=== PATIENT | female | born 1960 | race Caucasian/White ===

== ENCOUNTER → 2016-05-20 | Outpatient (CLI) | payer OTHER ==
[~2016-05-20] MED LIST: ASPI81CH2 PO; ATOR-24 PO; CHOL100010 PO; DOXY100C2 PO; DOXY1CAP PO; INSDGI SC; INSDGI SQ; KPP/1000 PO; KPP250 PO; LEVO125T72 PO; LPR25 PO; METO50TA16 PO; NVLG SQ; NVLGI SC; SYN125 PO; TOPI100T20 PO; TOPI200T6 PO
[2016-05-24 01:40] LABS: TOPIRAMATE (TOPAMAX)**30965 16.5 mcg/mL
== END | disposition home or self-care (01) ==
LOC: C.LAB1850 13:50
PROVIDERS: ATTEND Psychiatry & Neurology Neurology
DX: G40.909 Epilepsy, unspecified, not intractable, without status epilepticus (principal)

== ENCOUNTER 2016-07-20 14:49 | Emergency (ER) | payer OTHER ==
[~2016-07-20] VITALS: Ht 170.2 cm; Wt 55.3 kg
[~2016-07-20 14:49] MED LIST changes: -ASPI81CH2 PO; -ATOR-24 PO; -DOXY100C2 PO; -DOXY1CAP PO; -INSDGI SQ; -KPP/1000 PO; -KPP250 PO; -LEVO125T72 PO; -LPR25 PO; -METO50TA16 PO; -NVLG SQ; -SYN125 PO; -TOPI100T20 PO; -TOPI200T6 PO
[2016-07-20 14:59] VITALS: TEMP 36.7; Ht 170.2 cm; Wt 55.3 kg
[2016-07-20] MEDS ORDERED: SODIUM CHLORIDE 0.9% 1000ML 1,000 ML IV STA ×2 (15:09→16:43)
--- NOTE | 2016-07-20 15:17 | EMERGENCY ROOM VISIT NOTE ---
History Report prepared by Andresibjhony: Hermelinda Monteiro Under the Supervision of: Dr. Tio Carbajal D.O. First contact with patient: 15:05 Chief Complaint: HYPERGLYCEMIA Stated Complaint: HIGH BLOOD SUGAR READINGS Nursing Triage Summary: type I diabetic, BSGs ranging over 500 at home since last evening, taking insulin with no improvement. Denies any current illness. History of Present Illness The patient is a 56 year old female who presents to the Emergency Room with complaints of persistent hyperglycemia that started "a couple of days ago". She is accompanied by 2 family members. The patient is a type 1 diabetic and reports her BSG's have been over 500 since last night. She has tried taking Insulin with no improvement, including 2 extra units of Insulin at 1200 today. She denies any recent fevers, cough or cold symptoms, chest pain, shortness of breath, nausea, vomiting, diarrhea or increased swelling in her legs. The patient also has a history of epilepsy but states her seizures have been under control recently. Her family admits she fell a few days ago, tripping on some stairs, and she did briefly lose consciousness during the fall. The patient also has a history of previous AR's and DKA. Her PCP is Dr. Perez with [facility] and the last time she saw him was approximately 2 to 3 weeks ago. Source of History: patient, family Onset: past couple of days Position: other (global) Timing: other (persistent) Modifying Factors (Relieving): other (Insulin) Associated Symptoms: No fevers, No cough (cough or cold symptoms), No chest pain, No SOB, No nausea, No vomiting, No diarrhea Review of Systems See HPI for pertinent positives & negatives. A total of 10 systems reviewed and were otherwise negative. Past Medical & Surgical Medical Problems: (1) Diabetes mellitus (2) DKA (diabetic ketoacidoses) (3) Epilepsy (4) History of seizures (5) AR (myocardial infarction) (6) Rosacea Family History Diabetes mellitus Heart disease Hypertension Kidney disease Kidney stones Social History Smoking Status: Never Smoker Alcohol Use: none Drug Use: none Marital Status: single Housing Status: lives with family Occupation Status: unemployed Current/Historical Medications Scheduled Aspirin (Aspirin), 1 TAB PO DAILY Atorvastatin (Lipitor), 20 MG PO DAILY Doxycycline (Monohydrate) (Doxycycline), Unknown Dose PO HS Insulin Aspart (Novolog), SQ AC Insulin Glargine (Lantus), 80 MG SQ DAILY Levetiracetam (Keppra), 1,000 MG PO BID Levothyroxine Sodium (Synthroid), 125 MCG PO DAILY Metoprolol Tartrate (Lopressor) (Lopressor), 25 MG PO Q12 Topiramate (Topamax), 300 MG PO QPM Topiramate (Topamax), 100 MG PO QAM Allergies Coded Allergies: No Known Allergies (Verified , NONE, 03/02/14) Physical Exam Vital Signs Date Time Temp Pulse Resp B/P (MAP) Pulse Ox O2 Delivery O2 Flow Rate FiO2 07/20/16 20:07 53 20 145/75 99 Room Air 07/20/16 18:51 56 20 148/73 100 Room Air 07/20/16 17:02 142/68 07/20/16 17:01 56 99 07/20/16 16:54 59 19 99 07/20/16 16:49 58 19 99 07/20/16 16:45 59 07/20/16 16:37 146/73 07/20/16 14:59 36.7 69 18 133/73 97 Room Air Physical Exam GENERAL: Patient is awake, alert, in no acute distress, patient is resting comfortably and showing no signs of anxiety EYES: The conjunctivae are clear. The pupils are round and reactive. EARS, NOSE, MOUTH AND THROAT: The nose is without any evidence of any deformity. Mucous membranes are moist tongue is midline NECK: The neck is nontender and supple. RESPIRATORY: Normal respiratory effort is noted there is no evidence of wheezing rhonchi or rales CARDIOVASCULAR: Regular rate and rhythm noted there no murmurs rubs or gallops normal S1 normal S2 GASTROINTESTINAL: The abdomen is soft. Bowel sounds are present in all quadrants. Abdomen is nontender MUSCULOSKELETAL/EXTREMITIES: There is no evidence of gross deformity full range of motion is noted in the hips and shoulders SKIN: Trace pedal edema bilaterally. There is no obvious evidence of any rash. There are no petechiae, pallor or cyanosis noted. NEUROLOGIC: Patient is awake alert and oriented x3, ambulates without difficulty. Medical Decision & Procedures ER Provider Diagnostic Interpretation: X-ray results as stated below per interpretation by me and the radiologist. CHEST ONE VIEW PORTABLE CLINICAL HISTORY: Abdominal pain. COMPARISON STUDY: Chest radiograph March 11, 2015. FINDINGS: There are median sternotomy wires and clips from bypass grafting. Cardiac size is normal. There is no evidence of pulmonary edema. No consolidation is identified. Sclerotic foci within the anterior left fifth and sixth ribs are unchanged and likely reflect bone islands. There is no pneumothorax or pleural effusion. IMPRESSION: No acute cardiopulmonary findings. No change since prior exam. Electronically signed by: Keagan Sosa M.D. 07/20/2016 3:37 PM Laboratory Results 07/20/16 15:50 Red Blood Count 4.14, Mean Corpuscular Volume 80.7, Mean Corpuscular Hemoglobin 27.3, Mean Corpuscular Hemoglobin Concent 33.8, Mean Platelet Volume 10.4, Neutrophils (%) (Auto) 49.8, Lymphocytes (%) (Auto) 39.1, Monocytes (%) (Auto) 7.3, Eosinophils (%) (Auto) 3.1, Basophils (%) (Auto) 0.7, Neutrophils # (Auto) 2.74, Lymphocytes # (Auto) 2.15, Monocytes # (Auto) 0.40, Eosinophils # (Auto) 0.17, Basophils # (Auto) 0.04 07/20/16 15:50 Test 07/20/16 15:20 07/20/16 15:50 07/20/16 16:08 07/20/16 18:10 Urine Color YELLOW Urine Appearance CLEAR (CLEAR) Urine pH 5.0 (4.5-7.5) Urine Specific [place] 1.021 (1.000-1.030) Urine Protein NEG (NEG) Urine Glucose (UA) 3+ (NEG) Urine Ketones NEG (NEG) Urine Occult Blood NEG (NEG) Urine Nitrite NEG (NEG) Urine Bilirubin NEG (NEG) Urine Urobilinogen NEG (NEG) Urine Leukocyte Esterase NEG (NEG) White Blood Count 5.50 K/uL (4.8-10.8) Red Blood Count 4.14 M/uL (4.2-5.4) Hemoglobin 11.3 g/dL (12.0-16.0) Hematocrit 33.4 % (37-47) Mean Corpuscular Volume 80.7 fL (80-100) Mean Corpuscular Hemoglobin 27.3 pg (25-34) Mean Corpuscular Hemoglobin Concent 33.8 g/dl (32-36) Platelet Count 236 K/uL (130-400) Mean Platelet Volume 10.4 fL (7.4-10.4) Neutrophils (%) (Auto) 49.8 % Lymphocytes (%) (Auto) 39.1 % Monocytes (%) (Auto) 7.3 % Eosinophils (%) (Auto) 3.1 % Basophils (%) (Auto) 0.7 % Neutrophils # (Auto) 2.74 K/uL (1.4-6.5) Lymphocytes # (Auto) 2.15 K/uL (1.2-3.4) Monocytes # (Auto) 0.40 K/uL (0.11-0.59) Eosinophils # (Auto) 0.17 K/uL (0-0.5) Basophils # (Auto) 0.04 K/uL (0-0.2) RDW Standard Deviation 35.9 fL (36.4-46.3) RDW Coefficient of Variation 12.2 % (11.5-14.5) Immature Granulocyte % (Auto) 0.0 % Immature Granulocyte # (Auto) 0.00 K/uL (0.00-0.02) Prothrombin Time 11.0 SECONDS (9.0-12.0) Prothromb Time International Ratio 1.0 (0.9-1.1) Activated Partial Thromboplast Time 25.1 SECONDS (21.0-31.0) Partial Thromboplastin Ratio 1.0 Anion Gap 11.0 mmol/L (3-11) Est Creatinine Clear Calc Drug Dose 61.0 ml/min Estimated GFR () 82.3 Estimated GFR (Non- 71.0 BUN/Creatinine Ratio 26.1 (10-20) Calcium Level 8.3 mg/dl (8.5-10.1) Total Bilirubin 0.3 mg/dl (0.2-1) Direct Bilirubin 0.1 mg/dl (0-0.2) Aspartate Amino Transf (AST/SGOT) 44 U/L (15-37) Alanine Aminotransferase (ALT/SGPT) 113 U/L (12-78) Alkaline Phosphatase 122 U/L (45-117) Total Creatine Kinase 125 U/L (26-192) Creatine Kinase MB 2.1 ng/ml (0.5-3.6) Creatine Kinase MB Ratio 1.7 (0-3.0) Total Protein 7.2 gm/dl (6.4-8.2) Albumin 3.9 gm/dl (3.4-5.0) Lipase 161 U/L (73-393) Beta-Hydroxybutyric Acid 2.77 mg/dL (0.2-2.81) Venous Blood pH 7.40 (7.36-7.41) Venous Blood Partial Pressure CO2 33 mmHg (38.0-50.0) Venous Blood Partial Pressure O2 47 mmHg Venous Blood HCO3 20 mmol/L Venous Blood Oxygen Saturation 80.9 % Venous Blood Base Excess -4.3 mmol/L Troponin I 0.037 ng/ml (0-0.045) Test 07/20/16 18:50 Bedside Glucose 128 mg/dl (70-90) Laboratory results per my review. Medications Administered Medications (Trade) Dose Ordered Sig/Cornell Route Start Time Stop Time Status Last Admin Dose Admin Sodium Chloride 1,000 ml @ 999 mls/hr Q1H1M STAT IV 07/20/16 15:09 07/20/16 16:09 DC 07/20/16 16:00 999 MLS/HR Sodium Chloride 1,000 ml @ 999 mls/hr Q1H1M STAT IV 07/20/16 16:43 07/20/16 17:43 DC 07/20/16 16:55 999 MLS/HR Insulin Human Regular (novoLIN-R U-100 PER UNIT) 5 units NOW STAT IV 07/20/16 17:05 07/20/16 17:06 DC 07/20/16 17:21 5 UNITS ECG Indication: weakness, other (hyperglycemia) Rate (beats per minute): 58 Rhythm: sinus bradycardia Findings: no ectopy, other (No acute ST segment abnormality, anterior T-wave abnormality) Change: no significant change (No significant change when compared to March 13, 2015) Change: 2nd EKG performed on July 20, 2016: Normal sinus rhythm, rate of 60, no ectopy, increased ST abnormalities from previous EKG. ED Course 1508: The patient was evaluated in room A11B. A complete history and physical examination were performed. 1509: NSS 1000 ml @ 999 mls/hr IV. 1643: NSS 1000 ml @ 999 mls/hr IV. 1705: Novolin-R U-100 per unit, 5 units IV. 1900: I reevaluated the patient. She is feeling well and her BSG is more stable currently. 2000: I reevaluated the patient. She is feeling well and resting comfortably. I discussed her results and discharge instructions and she and her family verbalized complete understanding and agreement. Medical Decision Medication Reconciliation: I attest that I have personally reviewed the patient' s current medications list. Patient was found to have a slightly elevated blood pressure due to circumstances. I do not believe that the patient requires hypertension monitoring. Prior records/ancillary studies reviewed and summarized above. Nursing notes reviewed. Additional history obtained from the patients family. Differential diagnosis: Etiologies such as metabolic, infection, hypo/hyperglycemia, electrolyte abnormalities, cardiac sources, intracerebral event, toxicologic, neurologic, as well as others were entertained. The patient is a 56-year-old female who presented to the emergency department for an evaluation of elevated blood sugar. The patient had no specific complaints and has had problems in the past similar to this. She states that she 's been compliant with her medications and she presents to emergency department with family members who state that she has been compliant with medications. She denies having any nausea vomiting chest pain or abdominal pain. The patient was treated with IV fluids and IV insulin in the emergency department. She was not found have significant anion gap or acidosis. She was found have a mild elevation in her liver function studies but has no abdominal tenderness on multiple re-evaluations. She also was found have a troponin which was detectable but not elevated above the positive threshold. This was rechecked on a delayed EKG as well as troponin. I discussed the patient's laboratory and radiographic studies with her and her family members. I offered to have the patient evaluated by the hospitalist but she stated that she felt better and was able to follow-up as an outpatient with her primary care physician. She was encouraged to rest and avoid any strenuous activity. She was encouraged to drink plenty clear liquids and continue all medications as prescribed. She was also encouraged return to the emergency department immediately if symptoms change worsen or if the need arises. Impression Primary Impression: Hyperglycemia Scribe Attestation The scribe's documentation has been prepared under my direction and personally reviewed by me in its entirety. I confirm that the note above accurately reflects all work, treatment, procedures, and medical decision making performed by me. Departure Information Dispostion Home / Self-Care Referrals Maximilian Perez D.O. (PCP) Patient Instructions Hyperglycemia, My [facility] Additional Instructions Continue all medications as prescribed. Drink plenty clear liquids. I would recommend a reevaluation by your family doctor. I would also recommend a recheck of your blood pressure as well as your liver function studies. Return to the emergency department immediately if symptoms change worsen or the need arises.
--- NOTE | 2016-07-20 15:38 | DIAGNOSTIC IMAGING REPORT ---
CHEST ONE VIEW PORTABLE CLINICAL HISTORY: Abdominal pain. COMPARISON STUDY: Chest radiograph March 11, 2015. FINDINGS: There are median sternotomy wires and clips from bypass grafting. Cardiac size is normal. There is no evidence of pulmonary edema. No consolidation is identified. Sclerotic foci within the anterior left fifth and sixth ribs are unchanged and likely reflect bone islands. There is no pneumothorax or pleural effusion. IMPRESSION: No acute cardiopulmonary findings. No change since prior exam. Electronically signed by: Keagan Sosa M.D. 07/20/2016 3:37 PM Dictated Date/Time: 07/20/2016 3:33 PM
[2016-07-20] MEDS ORDERED: TOPI100T20 PO (15:39)
[2016-07-20] MEDS ORDERED: NVLG SQ (15:41)
[2016-07-20 15:45] LABS: URINE APPEARANCE CLEAR (CLEAR); URINE BILIRUBIN NEG (NEG); URINE COLOR YELLOW; URINE NITRITE NEG (NEG); URINE SPECIFIC GRAVITY 1.021 (1.000-1.030); UROBILINOGEN NEG (NEG)
[2016-07-20] MEDS ORDERED: INSDGI SQ (15:47)
[2016-07-20] MEDS ORDERED: DOXY1CAP PO (15:47)
[2016-07-20] MEDS ORDERED: ATOR-24 PO (15:47)
[2016-07-20] MEDS ORDERED: ASPI81CH2 PO (15:47)
[2016-07-20] MEDS ORDERED: METO50TA16 PO (15:47)
[2016-07-20 15:55] LABS: MANUAL MICROSCOPIC REQUIRED? NO; REVIEW REQ? NO
[2016-07-20 16:15] LABS: VEN BLD GAS O2 SATURATION 80.9 %; VEN BLOOD GAS BASE EXCESS -4.3 mmol/L
[2016-07-20 16:23] LABS: BASO % 0.7 %; BASO ABS # 0.04 K/uL (0-0.2); COMPLETE YES; EOS % 3.1 %; HEMATOCRIT 33.4 % (37-47); LYMPH % 39.1 %; LYMPH ABS # 2.15 K/uL (1.2-3.4); MEAN CELL VOLUME 80.7 fL (80-100); MEAN CORPUSCULAR HEMOGLOBIN 27.3 pg (25-34); MEAN CORPUSCULAR HGB CONC 33.8 g/dl (32-36); MEAN PLATELET VOLUME 10.4 fL (7.4-10.4); MONO % 7.3 %; NEUT % 49.8 %; PLATELET COUNT 236 K/uL (130-400); RED BLOOD COUNT 4.14 M/uL (4.2-5.4)
[2016-07-20 16:41] LABS: BUN/CREATININE RATIO 26.1 (10-20); CALCIUM 8.3 mg/dl (8.5-10.1); CREATININE 0.91 mg/dl (0.60-1.20); POTASSIUM 3.7 mmol/L (3.5-5.1)
[2016-07-20 16:46] LABS: BETA-HYDROXYBUTYRATE 2.77 mg/dL (0.2-2.81); CKMB/CK RATIO 1.7 (0-3.0)
[2016-07-20] MEDS ORDERED: NovoLIN-R INSULIN PER UNIT CHARGE IV STA (17:05)
[2016-07-20] MEDS ORDERED: LEVO125T72 PO (18:20)
[2016-07-20] MEDS ORDERED: KPP/1000 PO (18:33)
[2016-07-20] MEDS ORDERED: TOPI200T6 PO (18:41)
[2016-07-20 20:07] VITALS: BP 145/75; PULSE 53; O2SAT 99
[2016-12-12] MEDS ORDERED: ATOR-24 PO (10:11)
== END 2016-07-20 20:26 | disposition home or self-care (01) ==
LOC: C.EDB 14:50 → C.EDA 20:26
DX: E10.65 Type 1 diabetes mellitus with hyperglycemia (principal); G40.909 Epilepsy, unspecified, not intractable, without status epilepticus; I25.2 Old myocardial infarction; Z79.82 Long term (current) use of aspirin; Z79.4 Long term (current) use of insulin; Z79.899 Other long term (current) drug therapy; Z83.3 Family history of diabetes mellitus; Z82.49 Family history of ischemic heart disease and other diseases of the circulatory system; Z84.1 Family history of disorders of kidney and ureter

== ENCOUNTER 2016-09-09 10:58 | Inpatient (IN) | payer OTHER ==
[~2016-09-09] VITALS: Ht 160 cm; Wt 56.3 kg
[~2016-09-09 10:58] MED LIST changes: +ASPI81CH2 PO; +ATOR-24 PO; -CHOL100010 PO; +DOXY1CAP PO; -INSDGI SC; +INSDGI SQ; +KPP/1000 PO; +LEVO125T72 PO; +METO50TA16 PO; +NVLG SQ; -NVLGI SC; +TOPI100T20 PO; +TOPI200T6 PO
[2016-09-09] MEDS ORDERED: DOXY100C2 PO (11:33)
[2016-09-09 11:42] LABS: COMPLETE YES; EOS % 1.4 %; HEMATOCRIT 36.8 % (37-47); IG% 0.6 %; LYMPH % 23.8 %; LYMPH ABS # 1.19 K/uL (1.2-3.4); MEAN CELL VOLUME 83.1 fL (80-100); MEAN CORPUSCULAR HEMOGLOBIN 26.9 pg (25-34); MEAN CORPUSCULAR HGB CONC 32.3 g/dl (32-36); MEAN PLATELET VOLUME 10.1 fL (7.4-10.4); NEUT % 73.2 %; PLATELET COUNT 267 K/uL (130-400); RED BLOOD COUNT 4.43 M/uL (4.2-5.4)
--- NOTE | 2016-09-09 11:54 | DIAGNOSTIC IMAGING REPORT ---
CHEST ONE VIEW PORTABLE CLINICAL HISTORY: Acute change in mental status COMPARISON STUDY: 07/20/2016 FINDINGS: There are postsurgical changes of a midline sternotomy. The heart is normal in size. There is no failure. There is no focal pulmonary consolidation.[ There is a stable left-sided sclerotic rib lesion. IMPRESSION: No active disease in the chest. Electronically signed by: Armando Love M.D. 09/09/2016 11:52 AM Dictated Date/Time: 09/09/2016 11:49 AM
[2016-09-09] MEDS ORDERED: SODIUM CHLORIDE 0.9% 1000ML 1,000 ML IV STA (12:18)
[2016-09-09] MEDS ORDERED: SODIUM CHLORIDE 0.9% 1000ML 1,000 ML IV ONE (12:18)
[2016-09-09] MEDS ORDERED: NovoLIN-R INSULIN PER UNIT CHARGE IV STA (12:18)
--- NOTE | 2016-09-09 12:25 | EMERGENCY ROOM VISIT NOTE ---
History Report prepared by Ben: Rosas Aviles Under the Supervision of: Dr. Kodak Chandra M.D. First contact with patient: 12:10 Chief Complaint: HYPERGLYCEMIA Stated Complaint: HYPERGLYCEMIA/LETHARGIC Nursing Triage Summary: Pt arrives to ER via ALS. Found unresponsive in bathroom at home. Pt BSG "HI" on EMS meter. Pts mother reports pt also has hx of seizures, most recent 2 days ago. Upon arrival to ER pt Awake, lethargic, oriented to place and person. Pt unable to report amount of insulin taken this AM. Pts mother reports pt has recently had high blood sugars with no similar issues. History of Present Illness The patient is a 56 year old female who presents to the Emergency Room with complaints of a possible resolved seizure occurring around 0930 from possible hyperglycemia. The patient's neighbor states that she found the patient on the commode unresponsive with her head against the wall/ The patient states that she does not think that she hit her head. The patient states that she had a large bowel movement when she had the episode. The patient denies any cough, fever, chest pain, abdominal pain, leg pain, numbness, or weakness, or shortness of breath. The patient states that she takes insulin for her diabetes , and she states that she did not miss taking any and did not miss a meal. Additionally, the patient takes Keppra and Topamax for her seizures and she hasn 't missed any. The patient has a history of DKA. Source of History: patient, family, other (neighbor) Onset: 0930 Position: other (global) Quality: other (seizure) Timing: resolved Associated Symptoms: No fevers, No cough, No chest pain, No SOB, No abdominal pain, No weakness, No numbness Review of Systems See HPI for pertinent positives & negatives. A total of 10 systems reviewed and were otherwise negative. Past Medical & Surgical Medical Problems: (1) Anemia (2) CAD (coronary artery disease) (3) DKA (diabetic ketoacidoses) (4) DM type 1 (diabetes mellitus, type 1) (5) Dyslipidemia (6) Epilepsy (7) Hypothyroidism (8) CT (myocardial infarction) (9) Rosacea (10) Unresponsive episode Surgical Problems: (1) Hx of CABG Old medical records were reviewed. Nurse's notes were reviewed and I agree with. Family History Diabetes mellitus Heart disease Hypertension Kidney disease Kidney stones Social History Smoking Status: Never Smoker Alcohol Use: none Drug Use: none Marital Status: single Housing Status: lives with family Occupation Status: unemployed Current/Historical Medications Scheduled Aspirin (Aspirin), 81 MG PO DAILY Doxycycline Hyclate (Vibramycin), 100 MG PO DAILY Insulin Aspart (Novolog), SQ AC Insulin Glargine (Lantus), 26 UNITS SQ QAM Levetiracetam (Keppra), 1,000 MG PO BID Levetiractam (Keppra), 250 MG PO BID Levothyroxine Sodium (Synthroid), 125 MCG PO UD Levothyroxine Sodium (Synthroid), 187.5 MCG PO WK Metoprolol Tartrate (Lopressor), 12.5 MG PO BID Topiramate (Topamax), 300 MG PO QPM Topiramate (Topamax), 100 MG PO QAM Allergies Coded Allergies: No Known Allergies (Verified , NONE, 09/09/16) Physical Exam Vital Signs Date Time Temp Pulse Resp B/P (MAP) Pulse Ox O2 Delivery O2 Flow Rate FiO2 09/09/16 13:03 100 Room Air 09/09/16 12:35 35.4 59 16 108/52 100 Room Air 09/09/16 11:20 95 Room Air 09/09/16 11:20 95 Room Air 09/09/16 11:20 72 18 107/57 94 Room Air 09/09/16 11:09 74 Physical Exam General: Pale, chronically ill-appearing older female that denies any complaints at the present. HEENT: Normal cephalic atraumatic. Pupils are equal round and reactive to light. Extraocular movements are intact. Oropharynx is pink with moist mucous membranes. No swelling of the mouth lips or tongue. Neck: Supple with a midline trachea. No meningeal signs or stiffness, no JVD or bruits. No Stridor. Chest: Clear to auscultation bilaterally. No wheezes or rhonchi. No increased work of breathing. Heart: regular rate and rhythm. Abdomen: Soft nontender, nondistended without rebound guarding or rigidity. Extremities: No cyanosis clubbing or edema. No calf tenderness or assymetry Spine/Back. Non tender to palpation. No CVA tenderness Skin: Good turgor without rashes. Neurologic exam: Cranial nerves two through 12 are intact. Motor and sensation are intact and symmetrical throughout. Medical Decision & Procedures ER Provider Diagnostic Interpretation: Radiology results as stated below per my review and radiologist interpretation: CHEST ONE VIEW PORTABLE CLINICAL HISTORY: Acute change in mental status COMPARISON STUDY: 07/20/2016 FINDINGS: There are postsurgical changes of a midline sternotomy. The heart is normal in size. There is no failure. There is no focal pulmonary consolidation.[ There is a stable left-sided sclerotic rib lesion. IMPRESSION: No active disease in the chest. Electronically signed by: Armando Love M.D. 09/09/2016 11:52 AM Dictated Date/Time: 09/09/2016 11:[address] HEAD WITHOUT CONTRAST (CT) CLINICAL HISTORY: Head trauma. Dizziness. 11 2. COMPARISON STUDY: No previous studies for comparison. TECHNIQUE: Axial CT of the brain is performed from the vertex to the skull base. IV contrast was not administered for this examination. A dose lowering technique was utilized adhering to the principles of ALARA. CT DOSE: 638.56 mGycm FINDINGS: No intra or extra-axial mass lesions are visualized. There is no CT evidence of acute cortical infarction. There is no evidence of midline shift. There is no acute hemorrhage. No calvarial fractures are visualized. There are minimal white matter hypodensities likely on a small vessel basis. There is no evidence of pathologic ventricular dilatation. There is a left mastoid effusion. IMPRESSION: Extensive left mastoid effusion. No acute intracranial findings. Electronically signed by: Armando Love M.D. 09/09/2016 1:53 PM Dictated Date/Time: 09/09/2016 1:51 PM Laboratory Results 09/09/16 11:25 Red Blood Count 4.43, Mean Corpuscular Volume 83.1, Mean Corpuscular Hemoglobin 26.9, Mean Corpuscular Hemoglobin Concent 32.3, Mean Platelet Volume 10.1, Neutrophils (%) (Auto) 73.2, Lymphocytes (%) (Auto) 23.8, Monocytes (%) (Auto) 1.0, Eosinophils (%) (Auto) 1.4, Basophils (%) (Auto) 0.0, Neutrophils # (Auto) 3.66, Lymphocytes # (Auto) 1.19, Monocytes # (Auto) 0.05, Eosinophils # (Auto) 0.07, Basophils # (Auto) 0.00 Test 09/09/16 11:25 09/09/16 11:34 09/09/16 12:29 White Blood Count 5.00 K/uL (4.8-10.8) Red Blood Count 4.43 M/uL (4.2-5.4) Hemoglobin 11.9 g/dL (12.0-16.0) Hematocrit 36.8 % (37-47) Mean Corpuscular Volume 83.1 fL (80-100) Mean Corpuscular Hemoglobin 26.9 pg (25-34) Mean Corpuscular Hemoglobin Concent 32.3 g/dl (32-36) Platelet Count 267 K/uL (130-400) Mean Platelet Volume 10.1 fL (7.4-10.4) Neutrophils (%) (Auto) 73.2 % Lymphocytes (%) (Auto) 23.8 % Monocytes (%) (Auto) 1.0 % Eosinophils (%) (Auto) 1.4 % Basophils (%) (Auto) 0.0 % Neutrophils # (Auto) 3.66 K/uL (1.4-6.5) Lymphocytes # (Auto) 1.19 K/uL (1.2-3.4) Monocytes # (Auto) 0.05 K/uL (0.11-0.59) Eosinophils # (Auto) 0.07 K/uL (0-0.5) Basophils # (Auto) 0.00 K/uL (0-0.2) RDW Standard Deviation 37.7 fL (36.4-46.3) RDW Coefficient of Variation 12.4 % (11.5-14.5) Immature Granulocyte % (Auto) 0.6 % Immature Granulocyte # (Auto) 0.03 K/uL (0.00-0.02) Estimated Average Glucose 223 mg/dl Hemoglobin A1c 9.4 % (4.5-5.6) Total Bilirubin 0.8 mg/dl (0.2-1) Alanine Aminotransferase (ALT/SGPT) 37 U/L (12-78) Alkaline Phosphatase 99 U/L (45-117) Troponin I < 0.015 ng/ml (0-0.045) Total Protein 7.3 gm/dl (6.4-8.2) Albumin 3.8 gm/dl (3.4-5.0) Globulin 3.5 gm/dl (2.5-4.0) Albumin/Globulin Ratio 1.1 (0.9-2) Thyroid Stimulating Hormone (TSH) 3.840 uIu/ml (0.300-4.500) Bedside Lactic Acid Venous 2.67 mmol/L (0.90-1.70) Aspartate Amino Transf (AST/SGOT) 16 U/L (15-37) Ethyl Alcohol mg/dL < 3.0 mg/dl (0-3) Laboratory studies as stated above per my review. Medications Administered Medications (Trade) Dose Ordered Sig/Cornell Route Start Time Stop Time Status Last Admin Dose Admin Insulin Human Regular (novoLIN-R U-100 PER UNIT) 10 units NOW STAT IV 09/09/16 12:18 09/09/16 12:20 DC 09/09/16 12:31 10 UNITS Sodium Chloride 1,000 ml @ 999 mls/hr Q1H1M STAT IV 09/09/16 12:18 09/09/16 13:18 DC 09/09/16 12:32 999 MLS/HR Sodium Chloride 1,000 ml @ 200 mls/hr Q5H ONCE IV 09/09/16 12:18 09/09/16 14:55 DC 09/09/16 12:32 200 MLS/HR ECG Indication: other (hyperglycemia) Rate (beats per minute): 71 Rhythm: normal sinus Findings: RBBB (incomplete), no acute ischemic change, prolonged QT, other ( Non specific T wave abnormality) Comparison ECG Date: 07/20/16 Change: QT interval is slightly longer ED Course 1210: Past medical records reviewed. The patient was evaluated in room C10, and a complete history and physical examination were performed. 1218: Sodium Chloride 1000 ml @ 200 mls/hr IV, Sodium Chloride 1000 ml @ 999 mls /hr IV, Insulin Human Regular 10 units IV 1240: I reevaluated the patient, and she is feeling okay 1245: Discussed the patient's case with JOLIE Cortés. The patient will be evaluated for further management. Medical Decision Differentials include, but are not limited to; DKA, HHNC, seizure, trauma, arrhythmia, electrolyte or metabolic abnormality. This patient comes in as described above. She had an episode where she was found unresponsive on the commode she was having a large bowel movement she has a history of type 1 diabetes as well as seizures and other medical problems. It was found that her blood sugar was greater than 600. Upon my initial evaluation emergency department she says she feels well and says she is asymptomatic. She denies pain or shortness breath or recent illness. She's had no blood or melena in her stool. Blood sugar was over 600. She does have some mild acidosis and probably does have some mild DKA. She was given 10 units regular insulin as well as IV hydration, she's been normotensive here, she was slightly hypothermic. CAT scan of her head was unremarkable obtain this because I was not sure if she hit her head or not. She does have a normal neurologic exam. She has no other significant electrolyte or metabolic abnormalities. She seemed to be doing much better. It is possible she could' ve had a seizure. I do think she needs to be admitted for further treatment and evaluation. I do think she has mild DKA and she may have had a precipitating cause for this as well. I'd do think she needs a further be evaluated for cardiac disease. I did consult the [facility] hospitalist who saw her in the ER and will admit her for these measures. Medication Reconcilliation Current Medication List: was personally reviewed by me Blood Pressure Screening Patient's blood pressure: Normal blood pressure Consults Time Called: 1242 Consulting Physician: JOLIE Cortés Returned Call: [phone] Discussed the patient's case with JOLIE Cortés. The patient will be evaluated for further management. Impression Primary Impression: Hyperglycemia Additional Impression: Altered mental status Scribe Attestation The scribe's documentation has been prepared under my direction and personally reviewed by me in its entirety. I confirm that the note above accurately reflects all work, treatment, procedures, and medical decision making performed by me. Departure Information Dispostion Being Evaluated By Hospitalist Referrals Maximilian Perez D.O. (PCP) Problem Qualifiers
[2016-09-09 12:27] LABS: ALB/GLOB RATIO 1.1 (0.9-2); ALKALINE PHOSPHATASE 99 U/L (45-117); ALT/SGPT 37 U/L (12-78); BLOOD UREA NITROGEN 24 mg/dl (7-18); BUN/CREATININE RATIO 18.5 (10-20); CALCIUM 8.9 mg/dl (8.5-10.1); CARBON DIOXIDE 17 mmol/L (21-32); CHLORIDE 107 mmol/L (98-107); GLUCOSE 601 mg/dl (70-99); SODIUM 137 mmol/L (136-145)
[2016-09-09 13:03] VITALS: O2SAT 100; BMI 21.6
[2016-09-09 13:15] LABS: BETA-HYDROXYBUTYRATE 10.21 mg/dL (0.2-2.81)
[2016-09-09] MEDS ORDERED: ONDANSETRON INJ 2 MG/ML 2 ML VIAL IV PRN (13:30)
[2016-09-09] MEDS ORDERED: ACETAMINOPHEN 325 MG TAB PO PRN (13:30)
[2016-09-09] MEDS ORDERED: SODIUM CHLORIDE 0.9% 1000ML 1,000 ML IV SCH (13:42)
[2016-09-09] MEDS ORDERED: INSULIN IV INFUSION PROTOCOL STA (13:42)
[2016-09-09] MEDS ORDERED: MODERATE STRESS LEVEL ONE (13:45)
[2016-09-09] MEDS ORDERED: DKA GOAL RANGE 150-250 mg/dl 1 EA ONE (13:45)
[2016-09-09] MEDS ORDERED: PHARMACY GLYCEMIC MGMT CONSULT PRN (13:45)
--- NOTE | 2016-09-09 13:54 | DIAGNOSTIC IMAGING REPORT ---
CT HEAD WITHOUT CONTRAST (CT) CLINICAL HISTORY: Head trauma. Dizziness. 11 2. COMPARISON STUDY: No previous studies for comparison. TECHNIQUE: Axial CT of the brain is performed from the vertex to the skull base. IV contrast was not administered for this examination. A dose lowering technique was utilized adhering to the principles of ALARA. CT DOSE: 638.56 mGycm FINDINGS: No intra or extra-axial mass lesions are visualized. There is no CT evidence of acute cortical infarction. There is no evidence of midline shift. There is no acute hemorrhage. No calvarial fractures are visualized. There are minimal white matter hypodensities likely on a small vessel basis. There is no evidence of pathologic ventricular dilatation. There is a left mastoid effusion. IMPRESSION: Extensive left mastoid effusion. No acute intracranial findings. Electronically signed by: Armando Love M.D. 09/09/2016 1:53 PM Dictated Date/Time: 09/09/2016 1:51 PM
[2016-09-09] MEDS ORDERED: KPP250 PO (13:57)
[2016-09-09] MEDS ORDERED: SYN125 PO (13:57)
[2016-09-09] MEDS ORDERED: LPR25 PO (13:57)
[2016-09-09 14:12] VITALS: O2SAT 100
[2016-09-09 14:23] LABS: ESTIMATED AVERAGE GLUCOSE 223 mg/dl; HA1C FLAG Normal (Normal)
--- NOTE | 2016-09-09 14:41 | Pharmacy Progress Note ---
Glycemic Control Intl Consult Date of Service Sep 09, 2016. Scope Glycemic Pharmacist consulted by Ree Lund PA-C on 09/09/16 for glycemic control and to write orders per [facility] inpatient glycemic control protocol Objective Weight (Kilograms): 55.300 Accuchecks BSG (last 24hrs): Test 09/09/16 11:14 09/09/16 11:25 09/09/16 13:42 Bedside Glucose > 600 mg/dl (70-90) 404 mg/dl (70-90) Random Glucose 601 mg/dl (70-99) Laboratory Data (last 24hrs) Test 09/09/16 11:25 09/09/16 12:29 Anion Gap 13.0 mmol/L BUN/Creatinine Ratio 18.5 Blood Urea Nitrogen 24 mg/dl Creatinine 1.30 mg/dl Hemoglobin A1c 9.4 % Potassium Level mmol/L 4.0 mmol/L Sodium Level 137 mmol/L White Blood Count 5.00 K/uL Red Blood Count 4.43 M/uL Hemoglobin 11.9 g/dL Hematocrit 36.8 % Mean Corpuscular Volume 83.1 fL Mean Corpuscular Hemoglobin 26.9 pg Mean Corpuscular Hemoglobin Concent 32.3 g/dl Platelet Count 267 K/uL Mean Platelet Volume 10.1 fL Neutrophils (%) (Auto) 73.2 % Lymphocytes (%) (Auto) 23.8 % Monocytes (%) (Auto) 1.0 % Eosinophils (%) (Auto) 1.4 % Basophils (%) (Auto) 0.0 % Neutrophils # (Auto) 3.66 K/uL Lymphocytes # (Auto) 1.19 K/uL Monocytes # (Auto) 0.05 K/uL Eosinophils # (Auto) 0.07 K/uL Basophils # (Auto) 0.00 K/uL HbA1c Test 09/09/16 11:25 Hemoglobin A1c 9.4 % (4.5-5.6) H Recent Pertinent Medications Outpatient Anti-diabetic Regimen: * Lantus 26 units SQ daily in AM * NovoLog AC ( 6 units with BF, 5 units with Lunch & Dinner) & NovoLog correctional insulin per CF = 25 for BSG > 90 Assessment & Plan ASSESSMENT: * 56yo T1DM female admitted with mild DKA. * Pt initiated on IV insulin infusion per DKA protocol * Will transition to SQ basal bolus inpatient regimen when patient meets criteria & is tolerating PO * Criteria: Serum glucose below 200 mg/dL (DKA) or 250 to 300 mg/dL (HHS) Serum anion gap <12 meq/L Serum bicarbonate =15 meq/L Venous pH >7.30 * ADA & AACE recommend a goal blood sugar range 140-180 mg/dl for the majority of critically ill & non-critically ill patients. However, more stringent targets may be selected in individual cases. PLAN FOR INPATIENT GLYCEMIC CONTROL: * Continue IV insulin infusion per DKA protocol * Goal Range 150-250 mg/dl --> probably can lower goal range to 140-180mg/dl since DKA mild * In the critical care setting, continuous IV insulin infusion has been shown to be the best method for achieving glycemic targets. * Transition to SQ basal bolus insulin regimen 8/1 AM pending labs WNL and tolerating PO * Please note that the plan above was derived based on current level of insulin resistance and hospital stress. These recommendations are appropriate for inpatient admission only. Plan of care upon discharge will need to be reassessed to avoid potential outpatient hypo/hyperglycemia. Thank you.
[2016-09-09 14:42] VITALS: BP 135/74; PULSE 61; O2SAT 100
--- NOTE | 2016-09-09 14:54 | History and Physical ---
History & Physical Date & Time of Service: Sep 09, 2016 at 14:18 Chief Complaint: Hyperglycemia/Lethargic Primary Care Physician: Maximilian Perez D.O. History of Present Illness Source: patient, hospital records This is a 56 y/o female with PMH of DM type 2, seizure disorder, CAD s/p CABG, dyslipidemia, hypothyroidism, who presents to the ED for unresponsive episode. Patient reports being in her usual state of health this morning, however she can not recall the details of the episode. Around 9:00 am while in the bathroom patient was found unresponsive by her mother. Pt's mother states patient was locked in and she had to enter through the window. Her mother reports she was sitting on the commode unresponsive with her head against the wall. Her mother states she was unresponsive for approximately 5-15 minutes. No seizure like activity was witnessed. Patient had passed a bowel movement. 911 was called and for EMS blood sugar was elevated >600. Pt is now awake/alert and asymptomatic. She reports eating normally this morning. Has been compliant with insulin and seizure meds. Blood sugars fluctuate at home from 40's (asymptomatic) up to 400' s per pt's mother. Last seizure was years ago which presented as a short period of unresponsiveness as per her mother. Patient denies headache, dizziness, vision change, focal neurologic symptoms, fever, chills, rhinorrhea, sore throat , ear ache, cough, SOB, chest pain, palpitations, abdominal pain, N/V/D, dysuria , frequency, rash. Past Medical/Surgical History Medical Problems: (1) Anemia Status: Chronic (2) CAD (coronary artery disease) Status: Chronic (3) DM type 1 (diabetes mellitus, type 1) Status: Chronic (4) Dyslipidemia Status: Chronic (5) Epilepsy Status: Chronic (6) Hypothyroidism Status: Chronic (7) Rosacea Status: Chronic Surgical Problems: (1) Hx of CABG Status: Chronic Family History Diabetes mellitus Heart disease Hypertension Kidney disease Kidney stones Social History Smoking Status: Never Smoker Alcohol Use: none Drug Use: none Marital Status: single Housing status: lives with family (with her parents) Occupational Status: unemployed Immunizations History of Influenza Vaccine: Yes Influenza Vaccine Date: Nov 10, 2008 History of Tetanus Vaccine?: Yes History of Pneumococcal: Yes Pneumococcal Date: Jan 01, 2006 History of Hepatitis B Vaccine: No Multi-Drug Resistant Organisms History of MDRO: No Allergies Coded Allergies: No Known Allergies (Verified , NONE, 09/09/16) Home Medications Scheduled Aspirin (Aspirin), 81 MG PO DAILY Doxycycline Hyclate (Vibramycin), 100 MG PO DAILY Insulin Aspart (Novolog), SQ AC Insulin Glargine (Lantus), 26 UNITS SQ QAM Levetiracetam (Keppra), 1,000 MG PO BID Levetiractam (Keppra), 250 MG PO BID Levothyroxine Sodium (Synthroid), 125 MCG PO UD Levothyroxine Sodium (Synthroid), 187.5 MCG PO WK Metoprolol Tartrate (Lopressor), 12.5 MG PO BID Topiramate (Topamax), 300 MG PO QPM Topiramate (Topamax), 100 MG PO QAM Review of Systems Ten systems reviewed and negative except as noted in HPI. Physical Exam Vital Signs Date Time Temp Pulse Resp B/P (MAP) Pulse Ox O2 Delivery O2 Flow Rate FiO2 09/09/16 14:12 59 16 120/58 100 09/09/16 13:03 100 Room Air 09/09/16 12:35 35.4 59 16 108/52 100 Room Air 09/09/16 11:20 95 Room Air 09/09/16 11:20 95 Room Air 09/09/16 11:20 72 18 107/57 94 Room Air 09/09/16 11:09 74 General Appearance: WD/WN, no apparent distress Head: normocephalic, atraumatic Eyes: normal inspection, PERRL, EOMI, sclerae normal ENT: normal ENT inspection, hearing grossly normal, TMs normal, pharynx normal , + pertinent finding (L mastoid nontender) Neck: supple, trachea midline Respiratory/Chest: lungs clear, normal breath sounds, no respiratory distress, no accessory muscle use Cardiovascular: regular rate, rhythm, no murmur Abdomen/GI: normal bowel sounds, non tender, soft Extremities/Musculoskelatal: no calf tenderness, no pedal edema 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 nml as tested (no facial droop or dysarthria), no motor/sensory deficits, alert, normal mood/affect, oriented x 3 Skin: normal color, warm/dry Diagnostics Laboratory Results Results Past 24 Hours Test 09/09/16 11:14 09/09/16 11:25 09/09/16 11:34 09/09/16 12:29 Range/Units Bedside Glucose > 600 70-90 mg/dl White Blood Count 5.00 4.8-10.8 K/uL Red Blood Count 4.43 4.2-5.4 M/uL Hemoglobin 11.9 12.0-16.0 g/dL Hematocrit 36.8 37-47 % Mean Corpuscular Volume 83.1 80-100 fL Mean Corpuscular Hemoglobin 26.9 25-34 pg Mean Corpuscular Hemoglobin Concent 32.3 32-36 g/dl Platelet Count 267 130-400 K/uL Mean Platelet Volume 10.1 7.4-10.4 fL Neutrophils (%) (Auto) 73.2 % Lymphocytes (%) (Auto) 23.8 % Monocytes (%) (Auto) 1.0 % Eosinophils (%) (Auto) 1.4 % Basophils (%) (Auto) 0.0 % Neutrophils # (Auto) 3.66 1.4-6.5 K/uL Lymphocytes # (Auto) 1.19 1.2-3.4 K/uL Monocytes # (Auto) 0.05 0.11-0.59 K/uL Eosinophils # (Auto) 0.07 0-0.5 K/uL Basophils # (Auto) 0.00 0-0.2 K/uL RDW Standard Deviation 37.7 36.4-46.3 fL RDW Coefficient of Variation 12.4 11.5-14.5 % Immature Granulocyte % (Auto) 0.6 % Immature Granulocyte # (Auto) 0.03 0.00-0.02 K/uL Sodium Level 137 136-145 mmol/L Potassium Level 4.0 3.5-5.1 mmol/L Chloride Level 107 98-107 mmol/L Carbon Dioxide Level 17 21-32 mmol/L Anion Gap 13.0 3-11 mmol/L Blood Urea Nitrogen 24 7-18 mg/dl Creatinine 1.30 0.60-1.20 mg/dl Est Creatinine Clear Calc Drug Dose 40.4 ml/min Estimated GFR () 53.5 Estimated GFR (Non- 46.1 BUN/Creatinine Ratio 18.5 10-20 Random Glucose 601 70-99 mg/dl Calcium Level 8.9 8.5-10.1 mg/dl Total Bilirubin 0.8 0.2-1 mg/dl Aspartate Amino Transf (AST/SGOT) 16 15-37 U/L Alanine Aminotransferase (ALT/SGPT) 37 12-78 U/L Alkaline Phosphatase 99 45-117 U/L Troponin I < 0.015 0-0.045 ng/ml Total Protein 7.3 6.4-8.2 gm/dl Albumin 3.8 3.4-5.0 gm/dl Globulin 3.5 2.5-4.0 gm/dl Albumin/Globulin Ratio 1.1 0.9-2 Beta-Hydroxybutyric Acid 10.21 0.2-2.81 mg/dL Thyroid Stimulating Hormone (TSH) 3.840 0.300-4.500 uIu/ml Bedside Lactic Acid Venous 2.67 0.90-1.70 mmol/L Ethyl Alcohol mg/dL < 3.0 0-3 mg/dl Test 09/09/16 13:42 Range/Units Bedside Glucose 404 70-90 mg/dl Diagnostic Radiology CHEST ONE VIEW PORTABLE IMPRESSION: No active disease in the chest. CT HEAD WITHOUT CONTRAST (CT) IMPRESSION: Extensive left mastoid effusion. No acute intracranial findings. EKG NSR, 71 bpm, possible L atrial enlargement, incomplete RBBB, nonspecific ST and T wave abnormality, prolonged QT (utq=496), no significant change was found, as per cardiology read Impression Assessment and Plan UNRESPONSIVE EPISODE Possibly due to seizure in setting of DKA CT head- no acute intracranial findings EKG- NSR, no significant changes Monitor for arrhythmia in telemetry Check echo Continue Keppra and Topamax- levels pending Seizure precautions Consult neurology DKA In setting of uncontrolled DM type I (A1c 9.4) Presented with random blood sugar ~600; CO2 17; AG 13 No evidence of infectious etiology so far- CXR- no infiltrate, UA still pending ; reports compliance with insulin DKA management per protocol including IV insulin, IVF's, electrolyte monitoring Consult pharmacy for glycemic control Diabetes education consult Follows with endocrinology (Dr. Guillen) and [facility] clinical pharmacology as outpatient MANDEEP Creatinine 1.3 (baseline 0.9) Due to dehydration/ DKA IVF's Monitor renal function CAD S/P CABG Stable- no chest pain; EKG- no significant change; troponin negative Statin recently held as outpatient due to elevated transaminase Continue aspirin and beta quentin HYPOTHYROIDISM TSH is wnl Continue levothyroxine DVT PROPHYLAXIS Lovenox SQ FULL CODE DISPOSITION Admission to telemetry Follows with Dr. Perez for primary care Patient seen in collaboration with Dr. Villar. Please see his addendum. Agree with above H and P. Briefly 56f with hx of cad s/p cabg and seizure presents with unresponsive episode. Patient was in bathroom and had bowel movement and passed out. Patient doesn't know she passed out. When her mother called her she didn't responded so family got through window and patient was found unresponsive on the commode.She passed out for about 10-15minutes. No seizure activity noted. No biting of tounge. no incontinence as per patinet. No headaches or blurred vision. Speech is ok. No sob or chest pain. No fevers.Her sugars were lately running high and insulin was adjusted.Her sugars were found> 600 when EMS arrived.Currently feeling fine and hemodynamically stable. As per mother she didn't had major seizure for long time. But patient seems to pass out for few minutes once in a while and she did it couple of times last week. 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 a/p Seizure vs syncope DKA hx of seizures and hx of passing out will check Keppra and Topamax levels eeg neurology consult syncope? from dehydration from dka?, vaso vagal? f/u echo orthostatics DKA per protocol Advanced Directives Existing Living Will: No Existing Power of National Coverage Specialist: No VTE Prophylaxis VTE Risk Assessment Done? Y/N: Yes Risk Level: Moderate
[2016-09-09 15:28] VITALS: BMI 21.6
[2016-09-09] MEDS ORDERED: INSULIN HUMAN REGULAR IV BOLUS 1.5 UNIT in SYRINGE 0 ML IV SCH (15:30)
[2016-09-09] MEDS ORDERED: PENDING D5NSS IVF SCH (16:00)
[2016-09-09] MEDS ORDERED: PENDING NSS+20mEq KCL IVF SCH (16:00)
[2016-09-09 16:03] VITALS: BP 116/64; PULSE 58; TEMP 36.4; O2SAT 99
[2016-09-09] MEDS: INSULIN REGULAR 250 UNITS in SODIUM CHLORIDE 0.9% 250ML 250 ML IV SCH (16:09)
[2016-09-09 16:13] LABS: BUN/CREATININE RATIO 18.8 (10-20); CALCIUM 8.9 mg/dl (8.5-10.1); CREATININE 1.1 mg/dl (0.60-1.20); POTASSIUM 4.2 mmol/L (3.5-5.1)
[2016-09-09 16:28] LABS: BETA-HYDROXYBUTYRATE 4.23 mg/dL (0.2-2.81)
[2016-09-09] MEDS ORDERED: INSULIN ASPART 100 UNITS/ML 3 ML PEN SC SCH (17:30)
[2016-09-09] MEDS ORDERED: D5W AND NSS 1,000 ML IV SCH (18:45)
[2016-09-09] MEDS: INSULIN IV INFUSION PROTOCOL SCH ×2 (19:24→19:45)
[2016-09-09 19:27] VITALS: BP 121/53; PULSE 68; TEMP 37; O2SAT 98
[2016-09-09] MEDS: ENOXAPARIN 40 MG/0.4 ML SYR SC SCH (19:38)
[2016-09-09] MEDS: METOPROLOL TARTRATE 25 MG TAB PO SCH (19:40)
[2016-09-09] MEDS: LEVETIRACETAM 500 MG TAB PO SCH (19:40)
[2016-09-09] MEDS: TOPIRAMATE 100 MG TAB PO SCH (19:40)
[2016-09-09] MEDS: LEVETIRACETAM 250 MG TAB PO SCH (19:40)
[2016-09-09 20:29] LABS: CALCIUM 8.2 mg/dl (8.5-10.1); CREATININE 0.73 mg/dl (0.60-1.20); MAGNESIUM 1.9 mg/dl (1.8-2.4); PHOSPHORUS 2.4 mg/dl (2.5-4.9); POTASSIUM 3.7 mmol/L (3.5-5.1)
[2016-09-09] MEDS ORDERED: PHARMACY GLYCEMIC MGMT CONSULT STA (20:58)
[2016-09-09] MEDS ORDERED: D5W AND 1/2NSS 1,000 ML IV SCH (21:15)
[2016-09-09] MEDS: D5W AND 1/2NSS + 20MEQ KCL 1,000 ML IV SCH (22:36)
[2016-09-09 22:45] LABS: URINE APPEARANCE CLEAR (CLEAR); URINE BILIRUBIN NEG (NEG); URINE COLOR YELLOW; URINE NITRITE NEG (NEG); URINE SPECIFIC GRAVITY 1.026 (1.000-1.030); UROBILINOGEN NEG (NEG); ZZUR CULT IF INDIC CLEAN CATCH NO
[2016-09-09 22:48] LABS: MANUAL MICROSCOPIC REQUIRED? NO; REVIEW REQ? NO
[2016-09-09 23:15] LABS: BENZODIAZEPINE, URINE NEG (NEG); COCAINE,URINE NEG (NEG); PHENCYCLIDINE, URINE NEG (NEG)
[2016-09-09 23:54] VITALS: BP 118/63; PULSE 70; TEMP 36.9; O2SAT 99
[2016-09-10 00:30] LABS: BUN/CREATININE RATIO 15.3 (10-20); CALCIUM 7.8 mg/dl (8.5-10.1); CREATININE 0.87 mg/dl (0.60-1.20); MAGNESIUM 1.8 mg/dl (1.8-2.4); PHOSPHORUS 2.7 mg/dl (2.5-4.9); POTASSIUM 3.9 mmol/L (3.5-5.1)
[2016-09-10 03:53] VITALS: BP 110/62; PULSE 65; TEMP 36.7; O2SAT 98
[2016-09-10 04:14] LABS: BUN/CREATININE RATIO 13.5 (10-20); CALCIUM 7.8 mg/dl (8.5-10.1); CREATININE 0.8 mg/dl (0.60-1.20); MAGNESIUM 1.9 mg/dl (1.8-2.4); POTASSIUM 3.7 mmol/L (3.5-5.1)
[2016-09-10 04:15] LABS: PHOSPHORUS 2.2 mg/dl (2.5-4.9)
[2016-09-10] MEDS: D5W AND 1/2NSS + 20MEQ KCL 1,000 ML IV SCH (05:49)
[2016-09-10] MEDS: LEVOTHYROXINE 125 MCG TAB PO SCH (05:50)
[2016-09-10 07:28] VITALS: BP 111/65; PULSE 62; TEMP 36.8; O2SAT 99
--- NOTE | 2016-09-10 08:41 | ECHOCARDIOGRAM REPORT ---
*NOTICE TO RECEIVING CONSTITUTION PARTY AGENCY This information is strictly Confidential and protected under [place] law. [place] law prohibits you from making any further disclosure of this information unless further disclosure is expressly permitted by the written consent of the person to whom it pertains or is authorized by law. A general authorization for the release of medical or other information is not sufficient for this purpose. Hospital accepts no responsibility if the information is made available to any other person, INCLUDING THE PATIENT. Interpretation Summary * Name: NOAH MENCHACA Study Date: 09/09/2016 03:52 PM BP: 135/74 mmHg * Patient Location: C.2T\S\S240\S\2 HR: 61 * : 1960 (M/d/yyyy) Gender: Female Height: 63 in * Age: 56 yrs Ethnicity: CA Weight: 121 lb * Ordering Physician: Rocky Villar * Referring Physician: Self, Referred * Performed By: Tricia Whatley RDCS * * Reason For Study: Syncope * BSA: 1.6 m2 * -- Conclusions -- * Normal LV chamber size and wall thickness. * Normal LV systolic function, EF 65-70%. * No segmental left ventricular wall motion abnormalities are noted. * Grade II diastolic dysfunction. * Mild tricuspid regurgitation. Procedure Details * A complete two-dimensional transthoracic echocardiogram was performed (2D, M-mode, Doppler and color flow Doppler). Left Ventricle * The left ventricle is normal in size. * There is normal left ventricular wall thickness. * Ejection Fraction = 65-70%. * Left ventricular systolic function is normal. * No segmental left ventricular wall motion abnormalities are noted. * The left ventricular wall motion is normal. Right Ventricle * The right ventricular cavity size is normal (basal dimension <4.2 cm in right ventricular apical 4-chamber view). * The right ventricular systolic function is normal. Atria * The left atrial size is normal. * Right atrial size is normal. * No ASD detected; PFO is not assessed. Mitral Valve * The mitral valve is normal in structure and function. Tricuspid Valve * The tricuspid valve anatomy is normal. * There is no tricuspid stenosis. * There is mild tricuspid regurgitation. Aortic Valve * The aortic valve is normal in structure and function. Pulmonic Valve * The pulmonary valve is not well seen, but the Doppler examination is normal without significant regurgitation or stenosis. Great Vessels * The aortic root and proximal ascending aorta are normal sized. Pericardium/Pleural * There is no pericardial effusion. Left Ventricular Diastolic Function * Diastolic dysfunction, Grade II (pseudonormalization pattern). MMode 2D Measurements and Calculations IVSd 0.93 cm LVIDd 4.3 cm LVIDs 2.4 cm LVPWd 1.4 cm IVS/LVPW 0.67 FS 44.8 % EDV(Teich) 82.8 ml ESV(Teich) 19.6 ml EF(Teich) 76.4 % EDV(cubed) 79.2 ml ESV(cubed) 13.3 ml EF(cubed) 83.2 % LV mass(C)d 173.3 grams LV mass(C)dI 110.9 grams/m\S\2 CO(Teich) 4.1 l/min CI(Teich) 2.6 l/min/m\S\2 SV(Teich) 63.3 ml SI(Teich) 40.5 ml/m\S\2 CO(cubed) 4.3 l/min CI(cubed) 2.7 l/min/m\S\2 SV(cubed) 65.9 ml SI(cubed) 42.2 ml/m\S\2 Ao root diam 3.0 cm Ao root area 7.0 cm\S\2 ACS 1.8 cm LA dimension 3.4 cm asc Aorta Diam 2.5 cm LA/Ao 1.1 LVOT diam 1.9 cm LVOT area 2.9 cm\S\2 LVAd ap4 20.0 cm\S\2 LVLd ap4 6.3 cm EDV(MOD-sp4) 54.6 ml LVAs ap4 9.7 cm\S\2 LVLs ap4 5.0 cm ESV(MOD-sp4) 17.0 ml EF(MOD-sp4) 68.9 % LVAd ap2 20.1 cm\S\2 LVLd ap2 6.3 cm EDV(MOD-sp2) 53.8 ml LVAs ap2 9.3 cm\S\2 LVLs ap2 4.7 cm ESV(MOD-sp2) 16.4 ml EF(MOD-sp2) 69.5 % CO(MOD-sp4) 2.4 l/min CI(MOD-sp4) 1.6 l/min/m\S\2 SV(MOD-sp4) 37.6 ml SI(MOD-sp4) 24.1 ml/m\S\2 CO(MOD-sp2) 2.4 l/min CI(MOD-sp2) 1.6 l/min/m\S\2 SV(MOD-sp2) 37.4 ml SI(MOD-sp2) 23.9 ml/m\S\2 Doppler Measurements and Calculations MV E max kim 71.3 cm/sec MV A max kim 51.9 cm/sec MV E/A 1.4 MV dec time 0.20 sec Ao V2 max 110.8 cm/sec Ao max PG 4.9 mmHg Ao max PG (full) 2.3 mmHg FADI(V,A) 2.2 cm\S\2 FADI(V,D) 2.2 cm\S\2 LV V1 max PG 2.7 mmHg LV V1 max 81.5 cm/sec PA V2 max 71.4 cm/sec PA max PG 2.0 mmHg PA acc slope 272.6 cm/sec\S\2 PA acc time 0.17 sec PI end-d kim 97.7 cm/sec TR max kim 197.9 cm/sec PA pr(Accel) 2.9 mmHg
--- NOTE | 2016-09-10 08:43 | Neurology Consultation ---
Neurology Consultation Date of Consultation: Sep 10, 2016. Attending Physician: Rocky Villar MD Primary Care Physician: Maximilian Perez D.O. Reason for Consultation: Patient is a 56-year-old, who was asked to see the request of Ling Alatorre and Dr. Villar, for neurologic consultation regarding epilepsy History of Present Illness Source: patient, caregiver, clinic records, hospital records This patient has a history of epilepsy since high school years. She was originally diagnosed and treated at [facility] in [place] and was originally put on Dilantin. Sometime about 10-12 years ago topiramate was added. EEG showed right frontal or frontal temporal spike and slow wave discharges. There is no history of an MRI that I can see as far back as 2003. Patient first saw Dr. Garcia in February 2008. Because of some ataxia ( questionable mild cerebral palsy versus chronic Dilantin toxicity) he discontinued Dilantin and initiated Keppra. She has been on topiramate and levetiracetam since late 2008. He last saw the patient May 20, 2016. Levetiracetam level was 43 and topiramate level was 16.5 (both of these are adequate levels for the doses). The patient cannot give me any sense of what her seizures are like except she becomes unresponsive and can wake up groggy. Previous charting described episodes where she will become unaware and this can last for seconds to a minute or so that she will be confused for a while afterwards. Typically she doesn't convulse but she tells me that she had shaking with her episodes in the past. She typically doesn't bite her tongue or have urinary incontinence. This spring, she told Dr. Garcia that she is having occasional episodes where she gets "foggy in her thinking lasting a few seconds and then it disappears. This occurs about once a month or less. She has not had this recently. She feels well does not have any side effects to the medication. She's had no new colds, flu, illnesses, head trauma, or other issues. Around 0900 hours she was in the bathroom on September 09. She was found sometime thereafter by her mother. The door was locked and the mother had to go in through the window. She was sitting upright on the toilet leaning her head against the wall and was unresponsive. She was not stiff or jerking. By the time she arrived at the emergency room at 02/11/08 hours, the patient was described as having a normal mental status examination. There were no focal findings either. Temperature was 35.4, pulse 59 and regular, respiratory rate 16, low pressure 108/52. Chest x-ray was unremarkable. CT scan of the head showed no intracranial issues except for some left mastoid effusion. CBC showed mild anemia. Glucose on admission was over 600. There was an elevated BUN and creatinine. TSH was 3.8. Liver function was normal as was urinalysis. Since she has been hospitalized she's been on insulin drip and today her sugars been under 200 for the first time. She has decreased calcium and phosphorus. She's had no seizures or spells since admission. This morning, the patient feels well with no headache, pain, dizziness, confusion, vision problems, weakness or numbness of the limbs, incontinence, ear pain, hearing loss, or tinnitus. Cardiac monitoring since admission that showed no dysrhythmia. She's been in sinus rhythm in the 60s Past Medical/Surgical History Medical Problems: (1) Abnormal ECG Status: Acute (2) Altered mental status Status: Acute (3) Chest pain Status: Acute (4) Hyperglycemia Status: Acute Epilepsy, left frontotemporal source. Insulin-dependent diabetes with history of DKA Hypothyroidism Dyslipidemia History of DE with coronary artery bypass graft in the past History of wisdom teeth removal History of anemia, chronic Family History Mother, age 75, has cardiac issues. Father, age 80, has dementia, cardiac issues, hypertension, diabetes Paternal grandfather had Alzheimer's disease There is no family history of epilepsy Social History Patient has never smoked cigarettes or used alcohol. 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 She is unmarried and has no children. She lives with her parents. Smoking Status: Never smoker Smokeless Tobacco Use: No Alcohol Use: none Drug Use: none Marital Status: single Housing Status: lives with family Occupation Status: unemployed Allergies Coded Allergies: No Known Allergies (Verified , NONE, 09/09/16) Current Inpatient Medications Current Inpatient Medications Medications (Trade) Dose Ordered Sig/Cornell Route Start Time Stop Time Status Last Admin Dose Admin Enoxaparin Sodium (Lovenox Inj) 40 mg HS SC 09/09/16 21:00 10/09/16 20:59 09/09/16 19:38 40 MG Acetaminophen (Tylenol Tab) 650 mg Q4H PRN PO 09/09/16 13:30 10/09/16 13:29 Ondansetron HCl (Zofran Inj) 4 mg Q6H PRN IV 09/09/16 13:30 10/09/16 13:29 Insulin Aspart (novoLOG ASPART) SLIDING SCALE PCHS UT 09/09/16 17:30 10/09/16 18:59 Miscellaneous Information (Consult Glycemic Management Pharmacy) 1 ea UD PRN N/A 09/09/16 13:45 10/09/16 13:44 Aspirin (Ecotrin Tab) 81 mg DAILY PO 09/10/16 09:00 10/10/16 08:59 Doxycycline Hyclate (Vibramycin Cap) 100 mg DAILY PO 09/10/16 09:00 09/20/16 08:59 Levetiracetam (Keppra Tab) 1,000 mg BID PO 09/09/16 21:00 10/09/16 20:59 09/09/16 19:40 1,000 MG Levetiracetam (Keppra Tab) 250 mg BID PO 09/09/16 21:00 10/09/16 20:59 09/09/16 19:40 250 MG Levothyroxine Sodium (Synthroid Tab) 125 mcg MoTuWeThFrSa@0600 PO 09/10/16 06:00 10/10/16 05:59 09/10/16 05:50 125 MCG Levothyroxine Sodium (Synthroid Tab) 187.5 mcg Q7D@0600 PO 09/15/16 06:00 10/15/16 05:59 Metoprolol Tartrate (Lopressor Tab) 12.5 mg BID PO 09/09/16 21:00 10/09/16 20:59 09/09/16 19:40 12.5 MG Topiramate (Topamax Tab) 100 mg QAM PO 09/10/16 09:00 10/10/16 08:59 Topiramate (Topamax Tab) 300 mg QPM PO 09/09/16 21:00 10/09/16 20:59 09/09/16 19:40 300 MG Insulin Human Regular 250 units/ Sodium Chloride 252.5 ml @ 0 mls/hr DAILY@1130 IV 09/09/16 15:30 10/09/16 15:29 09/09/16 16:09 1.4 MLS/HR Potassium Chloride/Dextrose/ Sod Cl 1,000 ml @ 150 mls/hr Q6H40M IV 09/09/16 21:45 10/09/16 21:44 09/10/16 05:49 150 MLS/HR Review of Systems Constitutional: No weakness, No fatigue Eyes: No worsening of vision, No diplopia ENT: No hearing loss, No tinnitus, No trouble swallowing Respiratory: No cough, No shortness of breath Cardiovascular: No chest pain, No palpitations Abdomen: No pain, No nausea Musculoskeletal: No joint pain, No muscle pain Genitourinary - Female: No dysuria, No urinary incontinence Neurologic: No memory loss, No weakness, No numbness/tingling, No vertigo, No balance problems Psychiatric: No depression symptoms, No anxiety Endocrine: No fatigue Hematologic / Lymphatic: No abnormal bleeding/bruising Integumentary: No rash Allergic / Immunologic: No hives Physical Exam Vital Signs (Past 24 Hrs): Date Time Temp Pulse Resp B/P (MAP) Pulse Ox O2 Delivery O2 Flow Rate FiO2 09/10/16 07:30 Room Air 09/10/16 07:28 36.8 62 16 111/65 (80) 99 Room Air 09/10/16 04:00 Room Air 09/10/16 03:53 36.7 65 17 110/62 (78) 98 Room Air 09/10/16 00:00 Room Air 09/09/16 23:54 36.9 70 17 118/63 (81) 99 Room Air 09/09/16 20:00 Room Air 09/09/16 19:27 37.0 68 22 121/53 (75) 98 Room Air 09/09/16 16:03 36.4 58 22 116/64 (81) 99 Room Air 09/09/16 14:42 61 16 135/74 (94) 100 Room Air 09/09/16 14:12 59 16 120/58 100 09/09/16 13:03 100 Room Air 09/09/16 12:35 35.4 59 16 108/52 100 Room Air 09/09/16 11:20 95 Room Air 09/09/16 11:20 95 Room Air 09/09/16 11:20 72 18 107/57 94 Room Air 09/09/16 11:09 74 Patient is right-handed. The patient is awake and alert. Speech is normal without aphasia or dysarthria. Mentation and thought processes seem intact with orientation and normal fund of knowledge. Mood and affect are normal and appropriate. Appearance and grooming are normal. The discs are sharp with positive venous pulsations. There are no exudates, hemorrhages, or blood vessel changes seen. Pupils are 4mm bilaterally and reactive to light. Extraocular eye muscles are intact without nystagmus. Visual acuity and visual diamond seem normal grossly to confrontation. There are no deficits to sensation of the face bilaterally. Corneal reflexes are positive bilaterally. Facial strength and symmetry is normal bilaterally. Hearing seems intact grossly to voice and finger rub. Palate moves well without asymmetry. There is normal sternocleidomastoid and trapezius strength bilaterally. Tongue is midline with good strength bilaterally. Neck is with full range of motion without discomfort. There are no cervical bruits. There are no cranial or ocular bruits. Heart is without murmur. Cervical, thoracic, and lumbar spine are nontender to palpation. Gait is normal. Stance and balance seem normal. With outstretched arms there is no drift. There are no resting, postural, or action tremors. There is no ataxia with [id number] testing. There is good facility in the hands. There are no abnormal involuntary movements noted. Motor strength is 5/5 diffusely in the arms bilaterally including deltoids, biceps, brachioradialis, wrist flexors and extensors, athletic agent, and intrinsic hand muscles. Motor strength is 5/5 diffusely in the legs bilaterally including hip flexors, quadriceps, hamstring, gastrocnemius, tibialis anterior, tibialis posterior, and peroneii muscles bilaterally. Toe extensors are normal and there is good bulk in the extensor digitorum brevis muscle bilaterally. The limbs have good tone without rigidity or spasticity, and there is no atrophy noted. Muscle bulk is normal, there is no tenderness, no myotonia noted to percussion, and no fasciculations seen. Sensory examination is intact to pin and touch throughout all four limbs. Reflexes are 1/4 in the biceps, triceps, brachioradialis, quadriceps, and Achilles tendons bilaterally. Toes are downgoing with plantar stimulation bilaterally. Peripheral pulses are present and of normal quality distally in all four limbs. There is no peripheral edema noted. Laboratory Results Past 24 Hours: 09/09/16 11:25 Red Blood Count 4.43, Mean Corpuscular Volume 83.1, Mean Corpuscular Hemoglobin 26.9, Mean Corpuscular Hemoglobin Concent 32.3, Mean Platelet Volume 10.1, Neutrophils (%) (Auto) 73.2, Lymphocytes (%) (Auto) 23.8, Monocytes (%) (Auto) 1.0, Eosinophils (%) (Auto) 1.4, Basophils (%) (Auto) 0.0, Neutrophils # (Auto) 3.66, Lymphocytes # (Auto) 1.19, Monocytes # (Auto) 0.05, Eosinophils # (Auto) 0.07, Basophils # (Auto) 0.00 Test 09/09/16 11:25 09/09/16 11:34 09/09/16 12:29 09/09/16 15:43 White Blood Count 5.00 K/uL (4.8-10.8) Red Blood Count 4.43 M/uL (4.2-5.4) Hemoglobin 11.9 g/dL (12.0-16.0) Hematocrit 36.8 % (37-47) Mean Corpuscular Volume 83.1 fL (80-100) Mean Corpuscular Hemoglobin 26.9 pg (25-34) Mean Corpuscular Hemoglobin Concent 32.3 g/dl (32-36) Platelet Count 267 K/uL (130-400) Mean Platelet Volume 10.1 fL (7.4-10.4) Neutrophils (%) (Auto) 73.2 % Lymphocytes (%) (Auto) 23.8 % Monocytes (%) (Auto) 1.0 % Eosinophils (%) (Auto) 1.4 % Basophils (%) (Auto) 0.0 % Neutrophils # (Auto) 3.66 K/uL (1.4-6.5) Lymphocytes # (Auto) 1.19 K/uL (1.2-3.4) Monocytes # (Auto) 0.05 K/uL (0.11-0.59) Eosinophils # (Auto) 0.07 K/uL (0-0.5) Basophils # (Auto) 0.00 K/uL (0-0.2) RDW Standard Deviation 37.7 fL (36.4-46.3) RDW Coefficient of Variation 12.4 % (11.5-14.5) Immature Granulocyte % (Auto) 0.6 % Immature Granulocyte # (Auto) 0.03 K/uL (0.00-0.02) Estimated Average Glucose 223 mg/dl Hemoglobin A1c 9.4 % (4.5-5.6) Total Bilirubin 0.8 mg/dl (0.2-1) Alanine Aminotransferase (ALT/SGPT) 37 U/L (12-78) Alkaline Phosphatase 99 U/L (45-117) Troponin I < 0.015 ng/ml (0-0.045) Total Protein 7.3 gm/dl (6.4-8.2) Albumin 3.8 gm/dl (3.4-5.0) Globulin 3.5 gm/dl (2.5-4.0) Albumin/Globulin Ratio 1.1 (0.9-2) Thyroid Stimulating Hormone (TSH) 3.840 uIu/ml (0.300-4.500) Bedside Lactic Acid Venous 2.67 mmol/L (0.90-1.70) Aspartate Amino Transf (AST/SGOT) 16 U/L (15-37) Ethyl Alcohol mg/dL < 3.0 mg/dl (0-3) Beta-Hydroxybutyric Acid 4.23 mg/dL (0.2-2.81) Chemistry Specimen Hemolysis Test 09/09/16 17:55 09/09/16 21:00 09/10/16 03:37 09/10/16 04:57 Urine Color YELLOW Urine Appearance CLEAR (CLEAR) Urine pH 5.0 (4.5-7.5) Urine Specific [place] 1.026 (1.000-1.030) Urine Protein NEG (NEG) Urine Glucose (UA) 3+ (NEG) Urine Ketones NEG (NEG) Urine Occult Blood NEG (NEG) Urine Nitrite NEG (NEG) Urine Bilirubin NEG (NEG) Urine Urobilinogen NEG (NEG) Urine Leukocyte Esterase NEG (NEG) Urine WBC (Auto) 1-5 /hpf (0-5) Urine RBC (Auto) 0-4 /hpf (0-4) Urine Hyaline Casts (Auto) 0 /lpf (0-5) Urine Epithelial Cells (Auto) 5-10 /lpf (0-5) Urine Bacteria (Auto) NEG (NEG) Urine Opiates Screen NEG (NEG) Urine Methadone, Qualitative NEG (NEG) Urine Barbiturates NEG (NEG) Urine Phencyclidine (PCP) Level NEG (NEG) Ur Amphetamine/Methamphetamine NEG (NEG) MDMA (Ecstasy) Screen NEG (NEG) Urine Benzodiazepines Screen NEG (NEG) Urine Cocaine Metabolite NEG (NEG) Urine Marijuana (THC) NEG (NEG) Est Creatinine Clear Calc Drug Dose 65.7 ml/min Lactic Acid Level 1.9 mmol/L (0.4-2.0) Bedside Glucose 183 mg/dl (70-90) Test 09/10/16 08:[address] HEAD WITHOUT CONTRAST (CT) CLINICAL HISTORY: Head trauma. Dizziness. 11 2. COMPARISON STUDY: No previous studies for comparison. TECHNIQUE: Axial CT of the brain is performed from the vertex to the skull base. IV contrast was not administered for this examination. A dose lowering technique was utilized adhering to the principles of ALARA. CT DOSE: 638.56 mGycm FINDINGS: No intra or extra-axial mass lesions are visualized. There is no CT evidence of acute cortical infarction. There is no evidence of midline shift. There is no acute hemorrhage. No calvarial fractures are visualized. There are minimal white matter hypodensities likely on a small vessel basis. There is no evidence of pathologic ventricular dilatation. There is a left mastoid effusion. IMPRESSION: Extensive left mastoid effusion. No acute intracranial findings. Electronically signed by: Armando Love M.D. 09/09/2016 1:53 PM Impression 1. Epilepsy. Patient has a long-standing history of epilepsy with a right frontal temporal origin, fairly well controlled on 2 medications levetiracetam and topiramate. Levels of these medicines are pending from admission but may take several days to come back. I'm not convinced the patient had a seizure prior to admission. However, severe hyperglycemia can trigger seizures. 2. Unresponsive state September 09 She quickly cleared her encephalopathy and is back to baseline today. A glucose of greater than 500 can easily resolved in a significant encephalopathy. Currently, she has a normal mental status, no focal signs or meningeal signs on examination 3. Insulin-dependent diabetes with DKA Treatment: Her glucose is less than [address] scan with left mastoiditis, likely chronic. Patient has no headaches, ear pain or anything to suggest acute infection. Plan 1. Consider MRI of the brain with and without contrast This will help us with any acute issues, chronic vascular changes, and the left mastoiditis. 2. Awaiting anticonvulsant levels (pending from admission) 3. I see no need for additional neurologic testing or treatment at this time. 4. Keep anticonvulsant dosages the same as usual for now. 5. She will follow-up with Dr. Garcia as an outpatient.
[2016-09-10] MEDS ORDERED: INSULIN PROTOCOL GOAL RANGE ONE (09:00)
[2016-09-10] MEDS ORDERED: ATORVASTATIN 20 MG TAB PO SCH (09:00)
[2016-09-10] MEDS: DOXYCYCLINE HYCLATE 100 MG CAP PO SCH (09:01)
[2016-09-10] MEDS: ASPIRIN 81 MG ECTAB PO SCH (09:02)
[2016-09-10] MEDS: TOPIRAMATE 100 MG TAB PO SCH ×2 (09:02→21:02)
[2016-09-10] MEDS: METOPROLOL TARTRATE 25 MG TAB PO SCH ×2 (09:02→21:04)
[2016-09-10 09:03] LABS: BUN/CREATININE RATIO 9.8 (10-20); CALCIUM 7.9 mg/dl (8.5-10.1); CREATININE 0.88 mg/dl (0.60-1.20); MAGNESIUM 1.8 mg/dl (1.8-2.4); PHOSPHORUS 2.1 mg/dl (2.5-4.9)
[2016-09-10] MEDS: LEVETIRACETAM 500 MG TAB PO SCH ×2 (09:05→21:02)
[2016-09-10] MEDS: LEVETIRACETAM 250 MG TAB PO SCH ×2 (09:05→21:02)
[2016-09-10] MEDS: SODIUM CHLORIDE 0.9% 1000ML 1,000 ML IV SCH ×2 (10:22→17:15)
[2016-09-10 10:26] VITALS: Ht 160 cm; Wt 56.3 kg
[2016-09-10] MEDS ORDERED: INSULIN GLARGINE SOLOSTAR 100 UNITS/ML 3 ML PEN SC ONE (10:30)
[2016-09-10] MEDS: INSULIN REGULAR 250 UNITS in SODIUM CHLORIDE 0.9% 250ML 250 ML IV SCH (11:30)
[2016-09-10 11:38] VITALS: BP 120/62; PULSE 58; TEMP 36.9; O2SAT 100
--- NOTE | 2016-09-10 11:44 | Pharmacy Progress Note ---
Glycemic Control Progress Note Date of Service Sep 10, 2016. Scope Glycemic Pharmacist consulted for glycemic control to write orders per [facility] inpatient glycemic control protocol. Objective Accuchecks BSG (last 24hrs): Test 09/09/16 13:42 09/09/16 14:47 09/09/16 15:43 09/09/16 17:00 Bedside Glucose 404 mg/dl (70-90) 374 mg/dl (70-90) 274 mg/dl (70-90) Random Glucose 347 mg/dl (70-99) Test 09/09/16 18:08 09/09/16 19:01 09/09/16 19:44 09/09/16 20:10 Bedside Glucose 218 mg/dl (70-90) 195 mg/dl (70-90) 170 mg/dl (70-90) Random Glucose 149 mg/dl (70-99) Test 09/09/16 20:58 09/09/16 23:02 09/09/16 23:53 09/10/16 00:09 Bedside Glucose 151 mg/dl (70-90) 283 mg/dl (70-90) 319 mg/dl (70-90) Random Glucose 288 mg/dl (70-99) Test 09/10/16 00:59 09/10/16 01:56 09/10/16 03:09 09/10/16 03:37 Bedside Glucose 317 mg/dl (70-90) 241 mg/dl (70-90) 222 mg/dl (70-90) Random Glucose 245 mg/dl (70-99) Test 09/10/16 04:08 09/10/16 04:57 09/10/16 07:02 09/10/16 08:30 Bedside Glucose 210 mg/dl (70-90) 183 mg/dl (70-90) 150 mg/dl (70-90) Random Glucose 215 mg/dl (70-99) Test 09/10/16 09:02 09/10/16 09:59 09/10/16 10:11 09/10/16 11:03 Bedside Glucose 212 mg/dl (70-90) 188 mg/dl (70-90) 182 mg/dl (70-90) 157 mg/dl (70-90) HbA1c: Test 09/09/16 11:25 Hemoglobin A1c 9.4 % (4.5-5.6) H Recent Pertinent Medications Outpatient Anti-diabetic Regimen: * Lantus 26 units SQ daily in AM * NovoLog AC ( 6 units with BF, 5 units with Lunch & Dinner) & NovoLog correctional insulin per CF = 25 for BSG > 90 Assessment & Plan ASSESSMENT: * 56yo T1DM female admitted with mild DKA & initiated on IV insulin infusion per DKA protocol * Pt meets criteria to transition to SQ basal bolus inpatient regimen this AM per labs and PO intake. * IV insulin infusion was steady at ~ 1.4 units/hr while NPO which correlates to a basal insulin dose of ~ 33 units/day. Pt takes 26 units of basal daily as an outpatient and does have some reported hypoglycemia per [facility] records. Pt only ordered clear liquid diet. Will start with reduced outpatient dosing and titrate upwards if needed. * Start CF/CR per estimated total daily dose of ~ 50 units/day. * ADA & AACE recommend a goal blood sugar range 140-180 mg/dl for the majority of critically ill & non-critically ill patients. However, more stringent targets may be selected in individual cases. Will use a more stringent target of 110-140mg/dl based on patient age. PLAN FOR INPATIENT GLYCEMIC CONTROL: Transition from IV insulin infusion to SQ basal bolus insulin regimen * Basal insulin * Lantus 24 units SQ x 1 dose NOW (for clear liquid diet) then, * Lantus 26 units SQ daily in AM * Bolus insulin * NovoLog per scale ACHS/Q6hrs while NPO. Additional checkes/coverage at 0000 & 0400 tonight for hyperglycemia secondary to reduced basal insulin dose this morning * Goal range 110-140mg/dl * CF = 30mg/dl/unit * CR = 1 unit for every 10g CHO consumed. * Transition from IV to SQ per protocol to prevent lapse in insulin coverage. * First dose of basal insulin GIOVANNI (Lantus 24 units) then, Lantus 26 units SQ daily in AM starting 09/11/16 * Start bolus insulin per parameters above with the next meal (lunch) * D/C IV insulin infusion when held per calculator or 6hrs after first Lantus dose given, whichever happens sooner * Please note that the plan above was derived based on current level of insulin resistance and hospital stress. These recommendations are appropriate for inpatient admission only. Plan of care upon discharge will need to be reassessed to avoid potential outpatient hypo/hyperglycemia. Thank you.
[2016-09-10] MEDS: INSULIN ASPART 100 UNITS/ML 3 ML PEN SC SCH ×3 (12:21→21:06)
[2016-09-10 13:24] LABS: BLOOD UREA NITROGEN 7 mg/dl (7-18); BUN/CREATININE RATIO 9.3 (10-20); CARBON DIOXIDE 19 mmol/L (21-32); CHLORIDE 115 mmol/L (98-107); GLUCOSE 144 mg/dl (70-99); PHOSPHORUS 2.2 mg/dl (2.5-4.9); SODIUM 140 mmol/L (136-145)
[2016-09-10 14:14] LABS: MAGNESIUM 1.8 mg/dl (1.8-2.4); POTASSIUM 3.6 mmol/L (3.5-5.1)
--- NOTE | 2016-09-10 14:26 | Progress Note ---
Internal Med Progress Note Date of Service: Sep 10, 2016. Provider Documentation: SUBJECTIVE: resting comfortably no more episodes of unresponsiveness no chest pain or sob no headaches eating fine OBJECTIVE: Vital Signs-as noted below Exam: General-alert and oriented. Not in distress ENT-Normal hearing Neck-no neck masses supple Lungs-cta b/l no wheezing no crackles present Heart-s1 and s2 heard regular rate and rhythm no murmurs Abdomen-soft bowel sounds present non tender no distension Extremities-no edema present no erythema Neuro-alert and oriented moves extremities Lab data as noted below. ASSESSMENT & PLAN: UNRESPONSIVE EPISODE Possibly due to seizure in setting of DKA? CT head- no acute intracranial findings EKG- NSR, no significant changes Keppra and Topamax- levels pending Seizure precautions echo grade 2 diastolic dysfunction otherwise unremarkable study Consulted neurology and appreciate inputs plan for MRI head currently stable DKA In setting of uncontrolled DM type I (A1c 9.4) Presented with random blood sugar ~600; CO2 17; AG 13 Improved with DKA protocol appreciate pharmacy inputs MANDEEP Creatinine 1.3 (baseline 0.9) Due to dehydration/ DKA IVF's resolved CAD S/P CABG Stable Statin recently held as outpatient due to elevated transaminase On aspirin and beta quentin HYPOTHYROIDISM TSH is wnl on levothyroxine DVT PROPHYLAXIS Lovenox SQ FULL CODE DISPOSITION monitor in tele pt/ot possible d/c in 1-2 days Vital Signs: Date Time Temp Pulse Resp B/P (MAP) Pulse Ox O2 Delivery O2 Flow Rate FiO2 09/10/16 11:38 36.9 58 17 120/62 (81) 100 Room Air 09/10/16 11:20 Room Air 09/10/16 07:30 Room Air 09/10/16 07:28 36.8 62 16 111/65 (80) 99 Room Air 09/10/16 04:00 Room Air 09/10/16 03:53 36.7 65 17 110/62 (78) 98 Room Air 09/10/16 00:00 Room Air 09/09/16 23:54 36.9 70 17 118/63 (81) 99 Room Air 09/09/16 20:00 Room Air 09/09/16 19:27 37.0 68 22 121/53 (75) 98 Room Air 09/09/16 16:03 36.4 58 22 116/64 (81) 99 Room Air 09/09/16 14:42 61 16 135/74 (94) 100 Room Air Lab Results: Results Past 24 Hours Test 09/09/16 14:47 09/09/16 15:43 09/09/16 17:00 09/09/16 17:55 Range/Units Bedside Glucose 374 274 70-90 mg/dl Sodium Level 142 136-145 mmol/L Potassium Level 4.2 3.5-5.1 mmol/L Chloride Level 113 98-107 mmol/L Carbon Dioxide Level 19 21-32 mmol/L Anion Gap 10.0 3-11 mmol/L Blood Urea Nitrogen 21 7-18 mg/dl Creatinine 1.10 0.60-1.20 mg/dl Est Creatinine Clear Calc Drug Dose 47.8 ml/min Estimated GFR () 65.5 Estimated GFR (Non- 56.5 BUN/Creatinine Ratio 18.8 10-20 Random Glucose 347 70-99 mg/dl Calcium Level 8.9 8.5-10.1 mg/dl Phosphorus Level 3.0 2.5-4.9 mg/dl Magnesium Level 2.0 1.8-2.4 mg/dl Beta-Hydroxybutyric Acid 4.23 0.2-2.81 mg/dL Chemistry Specimen Hemolysis Venous Blood pH 7.30 7.36-7.41 Lactic Acid Level 2.7 0.4-2.0 mmol/L Test 09/09/16 18:08 09/09/16 19:01 09/09/16 19:44 09/09/16 20:10 Range/Units Bedside Glucose 218 195 170 70-90 mg/dl Sodium Level 145 136-145 mmol/L Potassium Level 3.7 3.5-5.1 mmol/L Chloride Level 117 98-107 mmol/L Carbon Dioxide Level 21 21-32 mmol/L Anion Gap 7.0 3-11 mmol/L Blood Urea Nitrogen 18 7-18 mg/dl Creatinine 0.73 0.60-1.20 mg/dl Est Creatinine Clear Calc Drug Dose 72.0 ml/min Estimated GFR () 107.5 Estimated GFR (Non- 92.7 BUN/Creatinine Ratio 24.0 10-20 Random Glucose 149 70-99 mg/dl Calcium Level 8.2 8.5-10.1 mg/dl Phosphorus Level 2.4 2.5-4.9 mg/dl Magnesium Level 1.9 1.8-2.4 mg/dl Test 09/09/16 20:45 09/09/16 20:58 09/09/16 21:00 09/09/16 23:02 Range/Units Venous Blood pH 7.33 7.36-7.41 Bedside Glucose 151 283 70-90 mg/dl Urine Color YELLOW Urine Appearance CLEAR CLEAR Urine pH 5.0 4.5-7.5 Urine Specific [place] 1.026 1.000-1.030 Urine Protein NEG NEG Urine Glucose (UA) 3+ NEG Urine Ketones NEG NEG Urine Occult Blood NEG NEG Urine Nitrite NEG NEG Urine Bilirubin NEG NEG Urine Urobilinogen NEG NEG Urine Leukocyte Esterase NEG NEG Urine WBC (Auto) 1-5 0-5 /hpf Urine RBC (Auto) 0-4 0-4 /hpf Urine Hyaline Casts (Auto) 0 0-5 /lpf Urine Epithelial Cells (Auto) 5-10 0-5 /lpf Urine Bacteria (Auto) NEG NEG Urine Opiates Screen NEG NEG Urine Methadone, Qualitative NEG NEG Urine Barbiturates NEG NEG Urine Phencyclidine (PCP) Level NEG NEG Ur Amphetamine/Methamphetamine NEG NEG MDMA (Ecstasy) Screen NEG NEG Urine Benzodiazepines Screen NEG NEG Urine Cocaine Metabolite NEG NEG Urine Marijuana (THC) NEG NEG Test 09/09/16 23:53 09/10/16 00:09 09/10/16 00:59 09/10/16 01:56 Range/Units Venous Blood pH 7.34 7.36-7.41 Sodium Level 143 136-145 mmol/L Potassium Level 3.9 3.5-5.1 mmol/L Chloride Level 116 98-107 mmol/L Carbon Dioxide Level 18 21-32 mmol/L Anion Gap 9.0 3-11 mmol/L Blood Urea Nitrogen 13 7-18 mg/dl Creatinine 0.87 0.60-1.20 mg/dl Est Creatinine Clear Calc Drug Dose 60.4 ml/min Estimated GFR () 86.9 Estimated GFR (Non- 75.0 BUN/Creatinine Ratio 15.3 10-20 Random Glucose 288 70-99 mg/dl Lactic Acid Level 2.9 0.4-2.0 mmol/L Calcium Level 7.8 8.5-10.1 mg/dl Phosphorus Level 2.7 2.5-4.9 mg/dl Magnesium Level 1.8 1.8-2.4 mg/dl Bedside Glucose 319 317 241 70-90 mg/dl Test 09/10/16 03:09 09/10/16 03:37 09/10/16 04:08 09/10/16 04:57 Range/Units Bedside Glucose 222 210 183 70-90 mg/dl Venous Blood pH 7.34 7.36-7.41 Sodium Level 142 136-145 mmol/L Potassium Level 3.7 3.5-5.1 mmol/L Chloride Level 114 98-107 mmol/L Carbon Dioxide Level 21 21-32 mmol/L Anion Gap 7.0 3-11 mmol/L Blood Urea Nitrogen 11 7-18 mg/dl Creatinine 0.80 0.60-1.20 mg/dl Est Creatinine Clear Calc Drug Dose 65.7 ml/min Estimated GFR () 96.2 Estimated GFR (Non- 83.0 BUN/Creatinine Ratio 13.5 10-20 Random Glucose 245 70-99 mg/dl Lactic Acid Level 1.9 0.4-2.0 mmol/L Calcium Level 7.8 8.5-10.1 mg/dl Phosphorus Level 2.2 2.5-4.9 mg/dl Magnesium Level 1.9 1.8-2.4 mg/dl Test 09/10/16 07:02 09/10/16 08:30 09/10/16 09:02 09/10/16 09:59 Range/Units Bedside Glucose 150 212 188 70-90 mg/dl Venous Blood pH 7.32 7.36-7.41 Sodium Level 141 136-145 mmol/L Potassium Level 4.0 3.5-5.1 mmol/L Chloride Level 114 98-107 mmol/L Carbon Dioxide Level 21 21-32 mmol/L Anion Gap 6.0 3-11 mmol/L Blood Urea Nitrogen 9 7-18 mg/dl Creatinine 0.88 0.60-1.20 mg/dl Est Creatinine Clear Calc Drug Dose 59.7 ml/min Estimated GFR () 85.7 Estimated GFR (Non- 74.0 BUN/Creatinine Ratio 9.8 10-20 Random Glucose 215 70-99 mg/dl Calcium Level 7.9 8.5-10.1 mg/dl Phosphorus Level 2.1 2.5-4.9 mg/dl Magnesium Level 1.8 1.8-2.4 mg/dl Test 09/10/16 10:11 09/10/16 11:03 09/10/16 11:45 09/10/16 12:29 Range/Units Bedside Glucose 182 157 143 70-90 mg/dl Venous Blood pH 7.31 7.36-7.41 Sodium Level 140 136-145 mmol/L Potassium Level 3.5-5.1 mmol/L Chloride Level 115 98-107 mmol/L Carbon Dioxide Level 19 21-32 mmol/L Anion Gap 6.0 3-11 mmol/L Blood Urea Nitrogen 7 7-18 mg/dl Creatinine 0.80 0.60-1.20 mg/dl Est Creatinine Clear Calc Drug Dose 65.7 ml/min Estimated GFR () 96.2 Estimated GFR (Non- 83.0 BUN/Creatinine Ratio 9.3 10-20 Random Glucose 144 70-99 mg/dl Calcium Level 8.0 8.5-10.1 mg/dl Phosphorus Level 2.2 2.5-4.9 mg/dl Magnesium Level 1.8-2.4 mg/dl Test 09/10/16 12:58 09/10/16 13:47 09/10/16 14:02 Range/Units Bedside Glucose 148 116 70-90 mg/dl Potassium Level 3.6 3.5-5.1 mmol/L Magnesium Level 1.8 1.8-2.4 mg/dl
[2016-09-10 15:34] VITALS: BP 125/67; PULSE 59; TEMP 36.6; O2SAT 99
[2016-09-10] MEDS ORDERED: DC IV INSULIN INFUSION ONE (16:30)
[2016-09-10 19:04] VITALS: BP 125/65; PULSE 71; TEMP 36.5; O2SAT 98
[2016-09-10] MEDS: ENOXAPARIN 40 MG/0.4 ML SYR SC SCH (21:03)
[2016-09-11] VITALS: BP 138/71; PULSE 68; TEMP 36.9; O2SAT 98
[2016-09-11] MEDS: INSULIN ASPART 100 UNITS/ML 3 ML PEN SC SCH ×4 (00:17→11:00)
[2016-09-11] MEDS: SODIUM CHLORIDE 0.9% 1000ML 1,000 ML IV SCH ×2 (00:19→07:31)
[2016-09-11 04:00] VITALS: BP 144/70; PULSE 57; TEMP 36.7; O2SAT 100
[2016-09-11] MEDS: LEVOTHYROXINE 125 MCG TAB PO SCH (06:13)
[2016-09-11] MEDS: ASPIRIN 81 MG ECTAB PO SCH (07:24)
[2016-09-11] MEDS: DOXYCYCLINE HYCLATE 100 MG CAP PO SCH (07:24)
[2016-09-11] MEDS: LEVETIRACETAM 250 MG TAB PO SCH (07:25)
[2016-09-11] MEDS: LEVETIRACETAM 500 MG TAB PO SCH (07:25)
[2016-09-11 07:26] VITALS: BP 146/81; PULSE 56; TEMP 36.8; O2SAT 97
[2016-09-11] MEDS: METOPROLOL TARTRATE 25 MG TAB PO SCH (07:26)
[2016-09-11] MEDS: TOPIRAMATE 100 MG TAB PO SCH (07:26)
[2016-09-11 07:51] LABS: BUN/CREATININE RATIO 13.9 (10-20); CALCIUM 7.9 mg/dl (8.5-10.1); CREATININE 0.71 mg/dl (0.60-1.20); MAGNESIUM 1.9 mg/dl (1.8-2.4); PHOSPHORUS 2.4 mg/dl (2.5-4.9); POTASSIUM 3.8 mmol/L (3.5-5.1)
[2016-09-11] MEDS ORDERED: POT PHOSPHATE MONOBASIC W/ SOD TAB PO SCH (09:00)
[2016-09-11] MEDS ORDERED: INSULIN GLARGINE SOLOSTAR 100 UNITS/ML 3 ML PEN SC SCH ×2 (09:00)
--- NOTE | 2016-09-11 09:09 | Pharmacy Progress Note ---
Glycemic Control Progress Note Date of Service Sep 11, 2016. Scope Glycemic Pharmacist consulted for glycemic control to write orders per [facility] inpatient glycemic control protocol. Objective Accuchecks BSG (last 24hrs): Test 09/10/16 09:59 09/10/16 10:11 09/10/16 11:03 09/10/16 11:45 Bedside Glucose 188 mg/dl (70-90) 182 mg/dl (70-90) 157 mg/dl (70-90) 143 mg/dl (70-90) Test 09/10/16 12:29 09/10/16 12:58 09/10/16 14:02 09/10/16 16:26 Random Glucose 144 mg/dl (70-99) Bedside Glucose 148 mg/dl (70-90) 116 mg/dl (70-90) 58 mg/dl (70-90) Test 09/10/16 16:46 09/10/16 17:06 09/10/16 20:06 09/11/16 00:12 Bedside Glucose 60 mg/dl (70-90) 124 mg/dl (70-90) 167 mg/dl (70-90) 161 mg/dl (70-90) Test 09/11/16 04:12 09/11/16 06:24 09/11/16 06:41 Bedside Glucose 161 mg/dl (70-90) 130 mg/dl (70-90) Random Glucose 131 mg/dl (70-99) HbA1c: Test 09/09/16 11:25 Hemoglobin A1c 9.4 % (4.5-5.6) H Recent Pertinent Medications The patient is currently receiving: * Basal insulin: Lantus 26 units every 24 hours * Correctional Insulin: Novolog Correction per scale ACHS Goal Range: Low 110 mg/dL - High 140 mg/dL Correction Factor: 30 mg/dL/unit * Prandial insulin: Per carb ratio of 1 unit per 10 grams CHO consumed Outpatient Anti-Diabetic Meds Lantus 26 units qAM Novolog 6 units with breakfast, 5 units with lunch, 5 units with dinner + CF 25 for BSG > 90 Assessment & Plan ASSESSMENT: * See progress note from 09/10 for more background info, in short: * Pt receiving SQ basal bolus insulin regimen for hyperglycemia secondary to baseline DM * Patient is currently receiving an average of 44 units of insulin per day * BSGs ranging 58 - 167 mg/dl over the past 24hrs * Changes needed to insulin regimen: * None - patient did have an episode of hypoglycemia yesterday but this may have been due to the overlap of the insulin drip and basal insulin; no further episodes since drip d/c'd * Additional notes / comments: * Patient successfully transitioned off insulin drip and back on home regimen PLAN FOR INPATIENT GLYCEMIC CONTROL: * Continue Lantus 26 units SQ qAM * Continue correction factor of 30 mg/dl/unit * Continue carb ratio of 1 unit per 10 grams CHO consumed * Continue goal range of Low 110 mg/dL - High 140 mg/dL RECOMMENDATIONS FOR DISCHARGE: * A1c not at goal but CDE note reports that patient's mother may hinder care as she is fearful of lows. Patient follows with endo in [place]. Recommend that patient continue to follow closely with them. Thank you.
[2016-09-11 09:50] VITALS: BP 146/81; PULSE 56; TEMP 36.8; O2SAT 97
[2016-09-11 11:10] VITALS: BP 133/70; PULSE 60; TEMP 36.6; O2SAT 99
--- NOTE | 2016-09-11 11:48 | DIAGNOSTIC IMAGING REPORT ---
BONY ORBITS 3 VIEWS CLINICAL HISTORY: MRI clearance. FINDINGS: 3 views of the bony orbits are obtained. Correlation is made with CT of the brain dated 09/09/2016. There is no radiodense/metallic foreign body seen in the region of the bony orbits. The bony orbits are intact as imaged. The visualized paranasal sinuses appear clear. The imaged calvarium appears intact. IMPRESSION: There is no radiodense/metallic foreign body seen in the region of the bony orbits. Electronically signed by: Beni Arboleda M.D. 09/11/2016 11:47 AM Dictated Date/Time: 09/11/2016 11:46 AM
[2016-09-11] MEDS ORDERED: GADAVIST IV PRN (12:30)
--- NOTE | 2016-09-11 13:02 | DIAGNOSTIC IMAGING REPORT ---
MRI OF THE BRAIN COMBO CLINICAL HISTORY: Change in mental status. Hyperglycemia. Unresponsive. COMPARISON STUDY: CT of the brain dated 09/09/2016. TECHNIQUE: MRI of the brain was performed utilizing various T1 and T2-weighted sequences in the axial, sagittal, and coronal planes. Contrast-enhanced sequences were acquired following the administration of 5 cc of Gadavist. The examination is performed using the seizure protocol and compromised by motion artifact. FINDINGS: Brain parenchyma: The brain parenchyma is normal in appearance. There is no hemorrhage or mass effect. There is no restricted diffusion to suggest acute ischemia. No enhancing mass lesion is identified on the postcontrast images. Drew-white matter differentiation is preserved. No extra-axial fluid collection is seen. The cerebellar tonsils are normal in configuration. The hippocampi are normal and symmetric. Ventricles, sulci, and cisterns: Normal in configuration. Pituitary and sella: Unremarkable. Intracranial vasculature: Normal flow voids are maintained at the skull base. Orbits: The bony orbits are grossly intact. Orbital contents are normal in appearance. Sinuses and mastoids: There is a large left mastoid effusion. The right mastoid air cells are clear. Mucosal thickening seen within the maxillary antra, left greater than right. Trace mucosal thickening is also seen in the ethmoid sinuses. Calvarium: Unremarkable. Cervical cord: Partially visualized cervical spinal cord is normal in morphology and signal intensity. IMPRESSION: 1. No acute intracranial abnormality. 2. Large left mastoid effusion. Electronically signed by: Beni Arboleda M.D. 09/11/2016 1:00 PM Dictated Date/Time: 09/11/2016 12:56 PM
--- NOTE | 2016-09-11 14:22 | Discharge Instructions ---
Discharge Instructions Date of Service Sep 11, 2016. Admission Reason for Admission: Hyperglycemia, Unresponsive Episode Discharge Discharge Diagnosis / Problem: DKA, UNRESPONSIVE EPSIODE Discharge Goals Goal(s): Decrease discomfort, Improve function Activity Recommendations Activity Limitations: resume your previous activity . Instructions / Follow-Up Instructions / Follow-Up FOLLOWUP WITH FAMILY DOCTOR ON September AT 10:25AM FOLLOWUP WITH ENDOCRINOLOGY SOON POSSIBLE FOLLOWUP WITH NEUROLOGY IN 1 TO 2 WEEKS. TO CONTINUE HOME INSULIN REGIMEN FOR NOW UNTIL SEEN BY FAMILY DOCTOR..(HBA1C 9.4 ) PLEASE CHECK BLOOD SUGARS FOUR TIMES DAILY: BEFORE BREAKFAST, LUNCH AND DINNER AND BEFORE GOING TO SLEEP AND NOTE THE READINGS IN A LOG BOOK. TO SHOW THE READINGS TO FAMILY DOCTOR/ENDOCRINOLOGY FOR FURTHER ADJUSTMENTS IN INSULIN REGIMEN. PLEASE CALL FAMILY DOCTOR IF BLOOD SUGARS> 350 OR LESS THAN 80. TO TAKE SUGAR OR ORANGE JUICE IF SUGARS BELOW 80 AND CALL FAMILY DOCTOR. Current Hospital Diet Patient's current hospital diet: Diabetes Type 1 Diet, Regular Diet Discharge Diet Recommended Diet: AHA Diet (Heart Healthy), Diabetes Type 2 Diet Pending Studies Studies pending at discharge: no Laboratory Results Hemoglobin A1c Test 09/09/16 11:25 Range/Units Estimated Average Glucose 223 mg/dl Hemoglobin A1c 9.4 H 4.5-5.6 % Medical Emergencies . Who to Call and When: Medical Emergencies: If at any time you feel your situation is an emergency, please call 911 immediately. . Non-Emergent Contact Non-Emergency issues call your: Primary Care Provider . . "Provider Documentation" section prepared by Rocky Villar. . VTE Core Measure Inpt VTE Proph given/why not?: Enoxaparin (Lovenox)SQ
[2016-09-11 14:41] VITALS: BP 133/70; PULSE 60; TEMP 36.6; O2SAT 99
--- NOTE | 2016-09-11 18:13 | Progress Note ---
Internal Med Progress Note Date of Service: Sep 11, 2016. Provider Documentation: SUBJECTIVE: resting comfortably no more episodes of unresponsiveness eating fine going to bathroom ok ambulating ok ok to go home OBJECTIVE: Vital Signs-as noted below Exam: General-alert and oriented. Not in distress ENT-Normal hearing Neck-no neck masses supple Lungs-cta b/l no wheezing no crackles present Heart-s1 and s2 heard regular rate and rhythm no murmurs Abdomen-soft bowel sounds present non tender no distension Extremities-no edema present no erythema Neuro-alert and oriented moves extremities Lab data as noted below. ASSESSMENT & PLAN: UNRESPONSIVE EPISODE Possibly due to seizure in setting of DKA? syncope? from dehydration? CT head- no acute intracranial findings EKG- NSR, no significant changes Keppra and Topamax- levels pending Seizure precautions echo grade 2 diastolic dysfunction otherwise unremarkable study Consulted neurology and appreciate inputs MRI head unremarkable except for large left mastoid effusion no more episodes since admission neurology to followup as out patient DKA In setting of uncontrolled DM type I (A1c 9.4) Presented with random blood sugar ~600; CO2 17; AG 13 Improved with DKA protocol appreciate pharmacy inputs to d/c on home insulin and close followup has appointment with PCP on September 13 MANDEEP Creatinine 1.3 (baseline 0.9) Due to dehydration/ DKA IVF's resolved CAD S/P CABG Stable Statin recently held as outpatient due to elevated transaminase On aspirin and beta quentin HYPOTHYROIDISM TSH is wnl on levothyroxine Discharged home Vital Signs: Date Time Temp Pulse Resp B/P (MAP) Pulse Ox O2 Delivery O2 Flow Rate FiO2 09/11/16 14:41 36.6 60 18 99 Room Air 09/11/16 12:00 Room Air 09/11/16 11:10 36.6 60 18 133/70 (91) 99 Room Air 09/11/16 08:00 Room Air 09/11/16 07:26 36.8 56 18 146/81 (102) 97 Room Air 09/11/16 04:00 36.7 57 17 144/70 (94) 100 Room Air 09/11/16 04:00 Room Air 09/11/16 00:00 36.9 68 17 138/71 (93) 98 Room Air 09/11/16 00:00 Room Air 09/10/16 19:20 Room Air 09/10/16 19:04 36.5 71 20 125/65 (85) 98 Room Air Lab Results: Results Past 24 Hours Test 09/10/16 20:06 09/11/16 00:12 09/11/16 04:12 09/11/16 06:24 Range/Units Bedside Glucose 167 161 161 130 70-90 mg/dl Test 09/11/16 06:41 09/11/16 11:25 Range/Units Sodium Level 147 136-145 mmol/L Potassium Level 3.8 3.5-5.1 mmol/L Chloride Level 121 98-107 mmol/L Carbon Dioxide Level 21 21-32 mmol/L Anion Gap 5.0 3-11 mmol/L Blood Urea Nitrogen 10 7-18 mg/dl Creatinine 0.71 0.60-1.20 mg/dl Est Creatinine Clear Calc Drug Dose 74.0 ml/min Estimated GFR () 111.1 Estimated GFR (Non- 95.9 BUN/Creatinine Ratio 13.9 10-20 Random Glucose 131 70-99 mg/dl Calcium Level 7.9 8.5-10.1 mg/dl Phosphorus Level 2.4 2.5-4.9 mg/dl Magnesium Level 1.9 1.8-2.4 mg/dl Bedside Glucose 125 70-90 mg/dl
--- NOTE | 2016-09-11 18:27 | Discharge Summary ---
Discharge Summary Date of Service Sep 11, 2016. Discharge Summary Admission Date: Sep 09, 2016 at 13:23 Discharge Date: Sep 11, 2016 Discharge Disposition: Home with services Principal Diagnosis: UNRESPONSIVE EPISODE DKA Secondary Diagnoses/Problems: (1) Anemia Status: Chronic (2) CAD (coronary artery disease) Status: Chronic (3) DM type 1 (diabetes mellitus, type 1) Status: Chronic (4) Dyslipidemia Status: Chronic (5) Epilepsy Status: Chronic (6) Hypothyroidism Status: Chronic (7) Rosacea Status: Chronic Procedures: CT HEAD: : Extensive left mastoid effusion. No acute intracranial findings. BRAIN MRI: 1. No acute intracranial abnormality. 2. Large left mastoid effusion. ECHO: Normal LV chamber size and wall thickness. * Normal LV systolic function, EF 65-70%. * No segmental left ventricular wall motion abnormalities are noted. * Grade II diastolic dysfunction. * Mild tricuspid regurgitation. Consultations: NEUROLOGY Medication Reconciliation Continued Medications: Aspirin (Aspirin) 81 Mg Chw 81 MG PO DAILY for 90 Days, #90 TAB 3 Refills Doxycycline Hyclate (Vibramycin) 100 Mg Cap 100 MG PO DAILY for 10 Days, #10 CAP Take 1 cap by mouth daily. Take 2 caps if any flare up of rosacea. Insulin Aspart (Novolog) 100 Units/Ml Inj SQ AC TAKE UP TO 80 UNITS A DAY, PER SLIDING SCALE Insulin Glargine (Lantus) 100 Unit/Ml Inj 26 UNITS SQ QAM, VIAL Levetiracetam (Keppra) 1,000 Mg Tab 1000 MG PO BID, TAB Levetiractam (Keppra) 250 Mg Tab 250 MG PO BID Levothyroxine Sodium (Synthroid) 125 Mcg Tab 125 MCG PO UD, TAB Take 1 tab (125 mcg) by mouth Friday to Friday. Levothyroxine Sodium (Synthroid) 125 Mcg Tab 187.5 MCG PO WK Take one and 1/2 tablet (187.5 mcg) by mouth on Sundays. Metoprolol Tartrate (Lopressor) 25 Mg Tab 12.5 MG PO BID, TAB Topiramate (Topamax) 200 Mg Tab 300 MG PO QPM, TAB Topiramate (Topamax) 100 Mg Tab 100 MG PO QAM, TAB Admission Information HPI (per Admitting provider): This is a 56 y/o female with PMH of DM type 2, seizure disorder, CAD s/p CABG, dyslipidemia, hypothyroidism, who presents to the ED for unresponsive episode. Patient reports being in her usual state of health this morning, however she can not recall the details of the episode. Around 9:00 am while in the bathroom patient was found unresponsive by her mother. Pt's mother states patient was locked in and she had to enter through the window. Her mother reports she was sitting on the commode unresponsive with her head against the wall. Her mother states she was unresponsive for approximately 5-15 minutes. No seizure like activity was witnessed. Patient had passed a bowel movement. 911 was called and for EMS blood sugar was elevated >600. Pt is now awake/alert and asymptomatic. She reports eating normally this morning. Has been compliant with insulin and seizure meds. Blood sugars fluctuate at home from 40's (asymptomatic) up to 400' s per pt's mother. Last seizure was years ago which presented as a short period of unresponsiveness as per her mother. Patient denies headache, dizziness, vision change, focal neurologic symptoms, fever, chills, rhinorrhea, sore throat , ear ache, cough, SOB, chest pain, palpitations, abdominal pain, N/V/D, dysuria , frequency, rash. 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 syncope? from dehydration? CT head- no acute intracranial findings EKG- NSR, no significant changes Keppra and Topamax- levels pending Seizure precautions echo grade 2 diastolic dysfunction otherwise unremarkable study Consulted neurology and appreciate inputs MRI head unremarkable except for large left mastoid effusion no more episodes since admission neurology to followup as out patient DKA In setting of uncontrolled DM type I (A1c 9.4) Presented with random blood sugar ~600; CO2 17; AG 13 Improved with DKA protocol appreciate pharmacy inputs to d/c on home insulin and close followup has appointment with PCP on September 13 MANDEEP Creatinine 1.3 (baseline 0.9) Due to dehydration/ DKA IVF's resolved CAD S/P CABG Stable Statin recently held as outpatient due to elevated transaminase On aspirin and beta quentin HYPOTHYROIDISM TSH is wnl on levothyroxine Discharged home Total time spent on discharge = 35MINUTES This includes examination of the patient, discharge planning, medication reconciliation, and communication with other providers. Discharge Instructions Discharge Instructions Date of Service Sep 11, 2016. Admission Reason for Admission: Hyperglycemia, Unresponsive Episode Discharge Discharge Diagnosis / Problem: DKA, UNRESPONSIVE EPSIODE Discharge Goals Goal(s): Decrease discomfort, Improve function Activity Recommendations Activity Limitations: resume your previous activity . Instructions / Follow-Up Instructions / Follow-Up FOLLOWUP WITH FAMILY DOCTOR ON September AT 10:25AM FOLLOWUP WITH ENDOCRINOLOGY SOON POSSIBLE FOLLOWUP WITH NEUROLOGY IN 1 TO 2 WEEKS. TO CONTINUE HOME INSULIN REGIMEN FOR NOW UNTIL SEEN BY FAMILY DOCTOR..(HBA1C 9.4 ) PLEASE CHECK BLOOD SUGARS FOUR TIMES DAILY: BEFORE BREAKFAST, LUNCH AND DINNER AND BEFORE GOING TO SLEEP AND NOTE THE READINGS IN A LOG BOOK. TO SHOW THE READINGS TO FAMILY DOCTOR/ENDOCRINOLOGY FOR FURTHER ADJUSTMENTS IN INSULIN REGIMEN. PLEASE CALL FAMILY DOCTOR IF BLOOD SUGARS> 350 OR LESS THAN 80. TO TAKE SUGAR OR ORANGE JUICE IF SUGARS BELOW 80 AND CALL FAMILY DOCTOR. Current Hospital Diet Patient's current hospital diet: Diabetes Type 1 Diet, Regular Diet Discharge Diet Recommended Diet: AHA Diet (Heart Healthy), Diabetes Type 2 Diet Pending Studies Studies pending at discharge: no Laboratory Results Hemoglobin A1c Test 09/09/16 11:25 Range/Units Estimated Average Glucose 223 mg/dl Hemoglobin A1c 9.4 H 4.5-5.6 % Medical Emergencies . Who to Call and When: Medical Emergencies: If at any time you feel your situation is an emergency, please call 911 immediately. . Non-Emergent Contact Non-Emergency issues call your: Primary Care Provider . . "Provider Documentation" section prepared by Rocky Villar. . VTE Core Measure Inpt VTE Proph given/why not?: Enoxaparin (Lovenox)SQ
[2016-09-14 12:37] LABS: TOPIRAMATE (TOPAMAX)**30965 17.6 mcg/mL
[2016-09-15] MEDS ORDERED: LEVOTHYROXINE 125 MCG TAB PO SCH (06:00)
== END 2016-09-11 15:30 | disposition home health service (06) | DRG 638 ==
LOC: EDBD 10:58 → C.EDC 10:59 → C.2T 13:23 → ENRESERV 13:34 → EDBEDREQ 13:45
PROVIDERS: ADMIT Internal Medicine; ATTEND Internal Medicine
DX: E10.10 Type 1 diabetes mellitus with ketoacidosis without coma (principal); N17.9 Acute kidney failure, unspecified; G40.909 Epilepsy, unspecified, not intractable, without status epilepticus; E10.65 Type 1 diabetes mellitus with hyperglycemia; I25.10 Atherosclerotic heart disease of native coronary artery without angina pectoris; E03.9 Hypothyroidism, unspecified; H70.12 Chronic mastoiditis, left ear; Z95.1 Presence of aortocoronary bypass graft; Z79.2 Long term (current) use of antibiotics; Z79.82 Long term (current) use of aspirin; Z79.899 Other long term (current) drug therapy; Z83.3 Family history of diabetes mellitus; Z82.0 Family history of epilepsy and other diseases of the nervous system; Z82.49 Family history of ischemic heart disease and other diseases of the circulatory system; Z84.1 Family history of disorders of kidney and ureter

== ENCOUNTER 2016-10-04 19:29 | Emergency (ER) | payer OTHER ==
[~2016-10-04] VITALS: Ht 157.5 cm; Wt 55.8 kg
[~2016-10-04 19:29] MED LIST changes: -ATOR-24 PO; +DOXY100C2 PO; -DOXY1CAP PO; +KPP250 PO; +LPR25 PO; -METO50TA16 PO; +SYN125 PO
[2016-10-04 19:37] VITALS: TEMP 36.7; Ht 157.5 cm; Wt 55.8 kg
[2016-10-04] MEDS ORDERED: SODIUM CHLORIDE 0.9% 1000ML 1,000 ML IV STA ×2 (20:03→21:19)
--- NOTE | 2016-10-04 20:21 | EMERGENCY ROOM VISIT NOTE ---
History Report prepared by Andresibjhony: Judith Thomas Under the Supervision of: Dr. Tio Carbajal D.O. First contact with patient: 19:57 Chief Complaint: HYPERGLYCEMIA Stated Complaint: HIGH BLOOD SUGAR Nursing Triage Summary: Patient states "My sugar is high. I haven't been able to get it down. In the 500's." Patient has hx of Diabetes Type I. History of Present Illness The patient is a 56 year old female who presents to the Emergency Room with complaints of high blood sugar in the 500's starting this morning. The patient denies any shortness of breath, fevers, nausea, vomiting, headache, diarrhea, or urinary symptoms. The patient states that she was unable to get her levels down, which is not normal for her. She is on insulin but does not have a pump. Source of History: patient Onset: this morning Timing: constant Associated Symptoms: No fevers, No headache, No SOB, No nausea, No vomiting , No diarrhea, No urinary symptoms Review of Systems See HPI for pertinent positives & negatives. A total of 10 systems reviewed and were otherwise negative. Past Medical & Surgical Medical Problems: (1) Anemia (2) CAD (coronary artery disease) (3) DKA (diabetic ketoacidoses) (4) DM type 1 (diabetes mellitus, type 1) (5) Dyslipidemia (6) Epilepsy (7) Hypothyroidism (8) KS (myocardial infarction) (9) Rosacea (10) Unresponsive episode Surgical Problems: (1) Hx of CABG Family History Diabetes mellitus Heart disease Hypertension Kidney disease Kidney stones Social History Smoking Status: Never Smoker Alcohol Use: none Drug Use: none Marital Status: single Housing Status: lives with family Occupation Status: unemployed Current/Historical Medications Scheduled Aspirin (Aspirin), 81 MG PO DAILY Doxycycline Hyclate (Vibramycin), 100 MG PO DAILY Insulin Aspart (Novolog), SQ AC Insulin Glargine (Lantus), 26 UNITS SQ QAM Levetiracetam (Keppra), 1,000 MG PO BID Levetiractam (Keppra), 250 MG PO BID Levothyroxine Sodium (Synthroid), 125 MCG PO UD Levothyroxine Sodium (Synthroid), 187.5 MCG PO WK Metoprolol Tartrate (Lopressor), 12.5 MG PO BID Topiramate (Topamax), 300 MG PO QPM Topiramate (Topamax), 100 MG PO QAM Allergies Coded Allergies: No Known Allergies (Verified , NONE, 09/09/16) Physical Exam Vital Signs Date Time Temp Pulse Resp B/P (MAP) Pulse Ox O2 Delivery O2 Flow Rate FiO2 10/04/16 23:04 61 18 134/68 100 10/04/16 22:38 61 18 134/68 100 Room Air 10/04/16 21:58 62 10/04/16 21:31 62 20 142/71 100 Room Air 10/04/16 19:37 36.7 81 18 136/77 97 Room Air Physical Exam GENERAL: Patient is awake, alert, and in no acute distress. Patient is resting comfortably and showing no signs of anxiety EYES: The conjunctivae are clear. The pupils are round and reactive. EARS, NOSE, MOUTH AND THROAT: The nose is without any evidence of any deformity. Mucous membranes are dry tongue is midline NECK: The neck is nontender and supple. RESPIRATORY: Normal respiratory effort is noted there is no evidence of wheezing rhonchi or rales CARDIOVASCULAR: Regular rate and rhythm noted there no murmurs rubs or gallops normal S1 normal S2 GASTROINTESTINAL: The abdomen is soft. Bowel sounds are present in all quadrants. Abdomen is nontender MUSCULOSKELETAL/EXTREMITIES: There is no evidence of gross deformity full range of motion is noted in the hips and shoulders SKIN: There is no obvious evidence of any rash. There are no petechiae, pallor or cyanosis noted. NEUROLOGIC: Patient is awake alert and oriented x3 strength is symmetric patellar reflexes are 2+ bilaterally Medical Decision & Procedures ER Provider Diagnostic Interpretation: Radiology results as stated below per my review and radiologist interpretation: CHEST ONE VIEW PORTABLE FINDINGS: Cardiac silhouette is within normal limits. Prior median sternotomy presumably with CABG. Lungs are hyperinflated without pneumothorax, pleural effusion or focal airspace consolidation. 1.5 x 1.2 cm calcified granuloma of the lateral left midlung is again seen. The bones are grossly intact. IMPRESSION: Hyperinflation without acute cardiopulmonary process. The above report was generated using voice recognition software. It may contain grammatical, syntax or spelling errors. Electronically signed by: Gustabo Islas M.D. Laboratory Results 10/04/16 20:15 Red Blood Count 4.22, Mean Corpuscular Volume 80.8, Mean Corpuscular Hemoglobin 27.5, Mean Corpuscular Hemoglobin Concent 34.0, Mean Platelet Volume 10.1, Neutrophils (%) (Auto) 52.9, Lymphocytes (%) (Auto) 34.3, Monocytes (%) (Auto) 7.7, Eosinophils (%) (Auto) 3.8, Basophils (%) (Auto) 1.1, Neutrophils # (Auto) 2.81, Lymphocytes # (Auto) 1.82, Monocytes # (Auto) 0.41, Eosinophils # (Auto) 0.20, Basophils # (Auto) 0.06 10/04/16 20:15 Test 10/04/16 20:15 10/04/16 20:55 10/04/16 22:41 White Blood Count 5.31 K/uL (4.8-10.8) Red Blood Count 4.22 M/uL (4.2-5.4) Hemoglobin 11.6 g/dL (12.0-16.0) Hematocrit 34.1 % (37-47) Mean Corpuscular Volume 80.8 fL (80-100) Mean Corpuscular Hemoglobin 27.5 pg (25-34) Mean Corpuscular Hemoglobin Concent 34.0 g/dl (32-36) Platelet Count 269 K/uL (130-400) Mean Platelet Volume 10.1 fL (7.4-10.4) Neutrophils (%) (Auto) 52.9 % Lymphocytes (%) (Auto) 34.3 % Monocytes (%) (Auto) 7.7 % Eosinophils (%) (Auto) 3.8 % Basophils (%) (Auto) 1.1 % Neutrophils # (Auto) 2.81 K/uL (1.4-6.5) Lymphocytes # (Auto) 1.82 K/uL (1.2-3.4) Monocytes # (Auto) 0.41 K/uL (0.11-0.59) Eosinophils # (Auto) 0.20 K/uL (0-0.5) Basophils # (Auto) 0.06 K/uL (0-0.2) RDW Standard Deviation 36.0 fL (36.4-46.3) RDW Coefficient of Variation 12.3 % (11.5-14.5) Immature Granulocyte % (Auto) 0.2 % Immature Granulocyte # (Auto) 0.01 K/uL (0.00-0.02) Prothrombin Time 11.1 SECONDS (9.0-12.0) Prothromb Time International Ratio 1.0 (0.9-1.1) Activated Partial Thromboplast Time 29.2 SECONDS (21.0-31.0) Partial Thromboplastin Ratio 1.1 Urine Color YELLOW Urine Appearance CLEAR (CLEAR) Urine pH 5.0 (4.5-7.5) Urine Specific [place] 1.032 (1.000-1.030) Urine Protein NEG (NEG) Urine Glucose (UA) 3+ (NEG) Urine Ketones NEG (NEG) Urine Occult Blood NEG (NEG) Urine Nitrite NEG (NEG) Urine Bilirubin NEG (NEG) Urine Urobilinogen NEG (NEG) Urine Leukocyte Esterase NEG (NEG) Anion Gap 6.0 mmol/L (3-11) Est Creatinine Clear Calc Drug Dose 51.8 ml/min Estimated GFR () 76.2 Estimated GFR (Non- 65.8 BUN/Creatinine Ratio 25.3 (10-20) Calcium Level 9.2 mg/dl (8.5-10.1) Magnesium Level 2.1 mg/dl (1.8-2.4) Total Bilirubin 0.5 mg/dl (0.2-1) Direct Bilirubin 0.1 mg/dl (0-0.2) Aspartate Amino Transf (AST/SGOT) 36 U/L (15-37) Alanine Aminotransferase (ALT/SGPT) 55 U/L (12-78) Alkaline Phosphatase 142 U/L (45-117) Troponin I 0.024 ng/ml (0-0.045) Total Protein 7.4 gm/dl (6.4-8.2) Albumin 4.0 gm/dl (3.4-5.0) Lipase 217 U/L (73-393) Beta-Hydroxybutyric Acid 1.17 mg/dL (0.2-2.81) Venous Blood pH 7.34 (7.36-7.41) Venous Blood Partial Pressure CO2 43 mmHg (38.0-50.0) Venous Blood Partial Pressure O2 36 mmHg Venous Blood HCO3 23 mmol/L Venous Blood Oxygen Saturation 64.3 % Venous Blood Base Excess -2.9 mEq/L Bedside Glucose 239 mg/dl (70-90) Laboratory results per my review. Medications Administered Medications (Trade) Dose Ordered Sig/[place] Route Start Time Stop Time Status Last Admin Dose Admin Sodium Chloride 1,000 ml @ 999 mls/hr Q1H1M STAT IV 10/04/16 20:03 10/04/16 21:03 DC 10/04/16 20:03 999 MLS/HR Sodium Chloride 1,000 ml @ 999 mls/hr Q1H1M STAT IV 10/04/16 21:19 10/04/16 22:19 DC 10/04/16 21:41 999 MLS/HR Insulin Human Regular (novoLIN-R U-100 PER UNIT) 4 units NOW STAT IV 10/04/16 21:19 10/04/16 21:20 DC 10/04/16 21:19 4 UNITS ECG Indication: other (hyperglycemia) Rate (beats per minute): 67 Rhythm: normal sinus Findings: no ectopy, other (Diffuse ST and T wave abnormality noted ) Comparison ECG Date: 09/09/16 Change: no significant change ED Course 2001: The patient was evaluated in room B7. A complete history and physical examination were performed. 2002: NSS 1,000 ml @ 999 mls/hr IV 2118: Insulin Human Regular 4 units IV, NSS 1,000 ml @ 999 mls/hr IV. 2157: I checked on the patient and updated her with her sugar levels. She is resting comfortably. 2304: Upon reevaluation, the patient is resting. I discussed the results and treatment plan with the patient. She verbalized agreement of the treatment plan. The patient was discharged home. Medical Decision Differential diagnosis: Etiologies such as metabolic, infection, hypo/hyperglycemia, electrolyte abnormalities, cardiac sources, intracerebral event, toxicologic, neurologic, as well as others were entertained. Nursing notes reviewed. The patient is a 56-year-old female who presented to the emergency department for an evaluation of hyperglycemia. The patient is a history of insulin- dependent diabetes. She states that she has been treating herself with her insulin and has been monitoring her blood sugar but she continues to have elevated blood sugar readings. She has not changed her insulin regimen. The patient was treated with IV fluids and IV insulin in emergency department. She was not found have a significant acidosis or an anion gap. Her bicarbonate was except full. She was reevaluated multiple times. She was encouraged to drink plenty clear liquids and continue all medications as prescribed especially her insulin regimen. She was also encouraged to follow-up with her family doctor soon as possible. She was also encouraged to return to the emergency department immediately if symptoms change worsen or the need arises. Medication Reconcilliation Current Medication List: was personally reviewed by me Blood Pressure Screening Patient's blood pressure: Normal blood pressure Impression Primary Impression: Hyperglycemia Scribe Attestation The scribe's documentation has been prepared under my direction and personally reviewed by me in its entirety. I confirm that the note above accurately reflects all work, treatment, procedures, and medical decision making performed by me. Departure Information Dispostion Home / Self-Care Referrals Maximilian Perez D.O. (PCP) Forms HOME CARE DOCUMENTATION FORM, IMPORTANT VISIT INFORMATION, WORK / SCHOOL INSTRUCTIONS Patient Instructions Hyperglycemia, My [facility] Additional Instructions Continue all medications as prescribed. Drink plenty clear liquids. Follow-up with your family doctor soon as possible.
[2016-10-04 20:42] LABS: URINE APPEARANCE CLEAR (CLEAR); URINE BILIRUBIN NEG (NEG); URINE COLOR YELLOW; URINE NITRITE NEG (NEG); URINE SPECIFIC GRAVITY 1.032 (1.000-1.030); UROBILINOGEN NEG (NEG)
[2016-10-04 20:44] LABS: MANUAL MICROSCOPIC REQUIRED? NO; REVIEW REQ? NO
[2016-10-04 20:45] LABS: BASO % 1.1 %; BASO ABS # 0.06 K/uL (0-0.2); COMPLETE YES; EOS % 3.8 %; HEMATOCRIT 34.1 % (37-47); IG% 0.2 %; LYMPH % 34.3 %; LYMPH ABS # 1.82 K/uL (1.2-3.4); MEAN CELL VOLUME 80.8 fL (80-100); MEAN CORPUSCULAR HEMOGLOBIN 27.5 pg (25-34); MEAN PLATELET VOLUME 10.1 fL (7.4-10.4); MONO % 7.7 %; NEUT % 52.9 %; PLATELET COUNT 269 K/uL (130-400); RED BLOOD COUNT 4.22 M/uL (4.2-5.4); WHITE BLOOD COUNT 5.31 K/uL (4.8-10.8)
--- NOTE | 2016-10-04 20:48 | DIAGNOSTIC IMAGING REPORT ---
CHEST ONE VIEW PORTABLE HISTORY: 56 years-old Female ABDOMINAL PAIN/GI COMPARISON: Portable chest radiograph 09/09/2016 and 06/13/2005. TECHNIQUE: Portable upright AP view of the chest FINDINGS: Cardiac silhouette is within normal limits. Prior median sternotomy presumably with CABG. Lungs are hyperinflated without pneumothorax, pleural effusion or focal airspace consolidation. 1.5 x 1.2 cm calcified granuloma of the lateral left midlung is again seen. The bones are grossly intact. IMPRESSION: Hyperinflation without acute cardiopulmonary process. The above report was generated using voice recognition software. It may contain grammatical, syntax or spelling errors. Electronically signed by: Gustabo Islas M.D. 10/04/2016 8:47 PM Dictated Date/Time: 10/04/2016 8:46 PM
[2016-10-04 20:55] LABS: PARTIAL THROMBOPLASTIN RATIO 1.1; PROTHROMBIN TIME (PATIENT) 11.1 SECONDS (9.0-12.0)
[2016-10-04 21:06] LABS: VEN BLD GAS O2 SATURATION 64.3 %; VEN BLOOD GAS BASE EXCESS -2.9 mEq/L
[2016-10-04 21:11] LABS: BETA-HYDROXYBUTYRATE 1.17 mg/dL (0.2-2.81); BUN/CREATININE RATIO 25.3 (10-20); CALCIUM 9.2 mg/dl (8.5-10.1); CREATININE 0.97 mg/dl (0.60-1.20); POTASSIUM 3.9 mmol/L (3.5-5.1)
[2016-10-04 21:12] LABS: MAGNESIUM 2.1 mg/dl (1.8-2.4)
[2016-10-04] MEDS ORDERED: NovoLIN-R INSULIN PER UNIT CHARGE IV STA (21:19)
[2016-10-04 23:04] VITALS: BP 134/68; PULSE 61; O2SAT 100
== END 2016-10-04 23:05 | disposition home or self-care (01) ==
LOC: C.EDB 19:29
DX: E10.65 Type 1 diabetes mellitus with hyperglycemia (principal); Z79.4 Long term (current) use of insulin; D64.9 Anemia, unspecified; I25.10 Atherosclerotic heart disease of native coronary artery without angina pectoris; E78.5 Hyperlipidemia, unspecified; G40.909 Epilepsy, unspecified, not intractable, without status epilepticus; E03.9 Hypothyroidism, unspecified; I25.2 Old myocardial infarction; L71.9 Rosacea, unspecified; Z95.1 Presence of aortocoronary bypass graft; Z83.3 Family history of diabetes mellitus; Z82.49 Family history of ischemic heart disease and other diseases of the circulatory system; Z84.1 Family history of disorders of kidney and ureter; Z79.82 Long term (current) use of aspirin; Z79.899 Other long term (current) drug therapy

== ENCOUNTER → 2017-04-08 | Outpatient (CLI) | payer OTHER ==
[~2017-04-08] MED LIST changes: +ATOR-24 PO
[2017-04-08 13:20] LABS: ALKALINE PHOSPHATASE 118 U/L (45-117); ALT/SGPT 33 U/L (12-78); AST/SGOT 17 U/L (15-37); BLOOD UREA NITROGEN 21 mg/dl (7-18); CALCIUM 8.7 mg/dl (8.5-10.1); CARBON DIOXIDE 20 mmol/L (21-32); CREATININE 0.94 mg/dl (0.60-1.20); GLUCOSE 403 mg/dl (70-99); POTASSIUM 4.5 mmol/L (3.5-5.1); SODIUM 138 mmol/L (136-145); TOTAL PROTEIN 7.9 gm/dl (6.4-8.2)
[2017-04-08 13:55] LABS: HEMOGLOBIN A1C 9.7 % (4.5-5.6)
[2017-04-08 13:57] LABS: CREATININE RANDOM URINE 68.4 mg/dl
== END | disposition home or self-care (01) ==
LOC: C.LAB1850 10:59
PROVIDERS: ATTEND Internal Medicine Endocrinology, Diabetes & Metabolism
DX: E11.9 Type 2 diabetes mellitus without complications (principal)